=== PATIENT | male | born 1960 | race Caucasian/White ===

== ENCOUNTER 2022-07-15 12:06 | Inpatient (IN) | payer OTHER ==
[~2022-07-15] VITALS: Ht 162.6 cm; Wt 113.9 kg
[2022-07-15 12:09] VITALS: BP_SYST 129
[2022-07-15 14:16] LABS: BASOPHILS % (AUTO) 0.3 % (0.0-2.0); EOSINOPHILS # (AUTO) 0.3 K/uL (0.0-0.4); EOSINOPHILS % (AUTO) 3.2 % (0.0-4.0); HEMATOCRIT 35.6 % (36-54); HEMOGLOBIN 12.2 g/dL (14.0-18.0); LYMPHOCYTES % (AUTO) 24.5 % (20.5-51.5); MEAN CORPUSCULAR HEMOGLOBIN 30 pg (27-31); MEAN CORPUSCULAR HGB CONC 34 % (32-36); MEAN CORPUSCULAR VOLUME 87 fL (79.0-98.0); MONOCYTES # (AUTO) 0.6 K/uL (0.0-1.0); MONOCYTES % (AUTO) 7.7 % (1.7-9.3); NEUTROPHILS # (AUTO) 5.2 K/uL (1.8-7.7); NEUTROPHILS % (AUTO) 64.3 % (40.0-70.0); PLATELET COUNT (AUTO) 327 K/uL (130-430); RED CELL DISTRIBUTION WIDTH 14.8 % (9.0-15.0); WHITE BLOOD COUNT (AUTO) 8.1 K/uL (4.8-10.8)
[2022-07-15 14:20] LABS: ANION GAP 6 (5-15); CALCIUM 9.2 mg/dL (8.4-11.0); CHLORIDE 93 mmol/L (98-107); GLUCOSE 101 mg/dL (70-99); UREA NITROGEN, BLOOD 20 mg/dL (8-21)
[2022-07-15 14:24] LABS: ACETONE, SERUM NEGATIVE (NEGATIVE)
[2022-07-15 14:25] LABS: ALANINE AMINOTRANSFERASE 4 U/L (12-78); ALBUMIN 3.2 g/dL (3.4-4.8); ASPARTATE AMINOTRANSFERASE 11 U/L (10-37); C-REACTIVE PROTEIN QUANT 0.2 mg/dL (0-0.5); TOTAL BILIRUBIN 0.3 mg/dL (0.0-1.0)
[2022-07-15] MEDS ORDERED: PIPERACILLIN/TAZO 3.375 GM in NS 50 ML IV ONE (16:15)
[2022-07-15] MEDS ORDERED: VANCOMYCIN HCL 1,500 MG in NS 250 ML IV SCH ×2 (16:15→17:00)
[2022-07-15] MEDS ORDERED: PIPERACILLIN/TAZOBACTAM 3.375 GM/VIAL (ZOSYN) IV ONE ×2 (16:55→17:14)
[2022-07-15] MEDS ORDERED: D5/0.45 NS 500 ML IV ONE (17:00)
[2022-07-15] MEDS ORDERED: ONDANSETRON HCL 4 MG/2 ML VIAL IVP PRN (17:00)
[2022-07-15] MEDS ORDERED: VANCOMYCIN HCL 500 MG/VIAL IV ONE (18:22)
[2022-07-15] MEDS ORDERED: VANCOMYCIN HCL 1000 MG/VIAL IV ONE (18:22)
[2022-07-15] MEDS: MORPHINE 2 MG/ML INJ. SYRINGE IVP PRN (19:09)
[2022-07-16] MEDS: LOPERAMIDE HCL 2 MG CAPSULE PO PRN (00:53)
[2022-07-16] MEDS ORDERED: PIPERACILLIN/TAZOBACTAM 3.375 GM/VIAL (ZOSYN) IV ONE (01:11)
[2022-07-16] MEDS: MORPHINE 2 MG/ML INJ. SYRINGE IVP PRN (01:27)
[2022-07-16] MEDS: PIPERACILLIN/TAZO 3.375 GM in NS 50 ML IV SCH ×3 (01:28→17:20)
[2022-07-16] MEDS ORDERED: ONDA4TAB55 PO (07:12)
[2022-07-16] MEDS ORDERED: LIP40 PO (07:12)
[2022-07-16] MEDS ORDERED: ASPI-1393 PO (07:12)
[2022-07-16] MEDS ORDERED: METO25TA6 PO (07:12)
[2022-07-16] MEDS ORDERED: OLAN20TA3 PO (07:12)
[2022-07-16] MEDS ORDERED: ACET325T PO (07:12)
[2022-07-16] MEDS ORDERED: LOSA25TA3 PO (07:12)
[2022-07-16] MEDS ORDERED: LOPE2CAP PO (07:12)
[2022-07-16] MEDS ORDERED: AMLO2.5T2 PO (07:12)
[2022-07-16] MEDS ORDERED: OLAN2.5T29 PO (07:12)
[2022-07-16] MEDS ORDERED: CLOT15CR5 TP (07:12)
[2022-07-16] MEDS ORDERED: METF-518 PO (07:12)
[2022-07-16] MEDS ORDERED: FURO-149 PO (07:12)
[2022-07-16] MEDS ORDERED: LOVI40 SQ (07:12)
[2022-07-16] MEDS ORDERED: DIVA-74 PO (07:12)
[2022-07-16] MEDS ORDERED: IBUP-1970 PO (07:12)
[2022-07-16] MEDS ORDERED: INSU100V (07:16)
[2022-07-16] MEDS ORDERED: INSU100V53 SUBCUT (07:16)
[2022-07-16 09:08] LABS: BASOPHILS % (AUTO) 0.4 % (0.0-2.0); CALCIUM 8.9 mg/dL (8.4-11.0); CREATININE 0.64 mg/dL (0.55-1.30); EOSINOPHILS # (AUTO) 0.2 K/uL (0.0-0.4); HEMATOCRIT 33.1 % (36-54); HEMOGLOBIN 11.6 g/dL (14.0-18.0); LYMPHOCYTES # (AUTO) 1.6 K/uL (1.0-5.5); LYMPHOCYTES % (AUTO) 16.7 % (20.5-51.5); MEAN CORPUSCULAR HEMOGLOBIN 31 pg (27-31); MEAN CORPUSCULAR HGB CONC 35 % (32-36); MEAN CORPUSCULAR VOLUME 87 fL (79.0-98.0); MONOCYTES # (AUTO) 0.8 K/uL (0.0-1.0); MONOCYTES % (AUTO) 8.1 % (1.7-9.3); NEUTROPHILS # (AUTO) 6.9 K/uL (1.8-7.7); NEUTROPHILS % (AUTO) 72.8 % (40.0-70.0); PLATELET COUNT (AUTO) 320 K/uL (130-430); RED BLOOD CELL COUNT(AUTO) 3.81 MIL/uL (4.2-6.2); RED CELL DISTRIBUTION WIDTH 14.9 % (9.0-15.0); WHITE BLOOD COUNT (AUTO) 9.5 K/uL (4.8-10.8)
[2022-07-16] MEDS ORDERED: HALOPERIDOL LACTATE 5 MG/ML VIAL IVP ONE (10:45)
[2022-07-16] MEDS ORDERED: LORazepam 2 MG/ML VIAL IVP ONE (10:45)
[2022-07-16] MEDS ORDERED: HALOPERIDOL LACTATE 5 MG/ML VIAL ONE (12:02)
[2022-07-16] MEDS ORDERED: LORazepam 2 MG/ML VIAL ONE (12:03)
[2022-07-16] MEDS: VANCOMYCIN HCL 1,500 MG in NS 250 ML IV SCH (17:20)
[2022-07-17] MEDS ORDERED: PIPERACILLIN/TAZOBACTAM 3.375 GM/VIAL (ZOSYN) IV ONE (01:52)
[2022-07-17] MEDS: PIPERACILLIN/TAZO 3.375 GM in NS 50 ML IV SCH ×3 (01:52→16:10)
[2022-07-17] MEDS: VANCOMYCIN HCL 1,500 MG in NS 250 ML IV SCH ×2 (06:00→19:08)
[2022-07-17] MEDS ORDERED: MORPHINE 2 MG/ML INJ. SYRINGE ONE (10:02)
[2022-07-17] MEDS: MORPHINE 2 MG/ML INJ. SYRINGE IVP PRN ×2 (10:04→22:38)
[2022-07-18] MEDS ORDERED: PIPERACILLIN/TAZOBACTAM 3.375 GM/VIAL (ZOSYN) IV ONE (00:28)
[2022-07-18] MEDS ORDERED: VANCOMYCIN HCL 1000 MG/VIAL IV ONE (00:28)
[2022-07-18] MEDS ORDERED: VANCOMYCIN HCL 500 MG/VIAL IV ONE (00:29)
[2022-07-18] MEDS: PIPERACILLIN/TAZO 3.375 GM in NS 50 ML IV SCH ×3 (02:31→16:48)
[2022-07-18 02:37] VITALS: BP_SYST 137
[2022-07-18] MEDS: VANCOMYCIN HCL 1,500 MG in NS 250 ML IV SCH ×2 (06:46→18:09)
[2022-07-18] MEDS: INSULIN LISPRO SLIDING SCALE 100 UNITS/ML, 3 ML VIAL (humaLOG) SUBCUT PRN ×3 (06:54→18:03)
[2022-07-18 08:00] VITALS: BP_SYST 145
[2022-07-18] MEDS: MORPHINE 2 MG/ML INJ. SYRINGE IVP PRN ×2 (10:43→16:49)
[2022-07-18 20:00] VITALS: BP_SYST 149
[2022-07-18] MEDS: OLANZapine 10 MG TABLET PO SCH (22:23)
[2022-07-18] MEDS: TEMAZEPAM 15 MG CAPSULE PO PRN (22:23)
[2022-07-19] MEDS: PIPERACILLIN/TAZO 3.375 GM in NS 50 ML IV SCH (00:14)
[2022-07-19] MEDS: INSULIN LISPRO SLIDING SCALE 100 UNITS/ML, 3 ML VIAL (humaLOG) SUBCUT PRN ×4 (00:23→18:00)
[2022-07-19] MEDS: MORPHINE 2 MG/ML INJ. SYRINGE IVP PRN ×3 (03:24→21:38)
[2022-07-19] MEDS: VANCOMYCIN HCL 1,500 MG in NS 250 ML IV SCH ×2 (05:52→17:54)
[2022-07-19 07:16] LABS: BASOPHILS # (AUTO) 0.1 K/uL (0.0-0.2); BASOPHILS % (AUTO) 1.1 % (0.0-2.0); EOSINOPHILS # (AUTO) 0.2 K/uL (0.0-0.4); EOSINOPHILS % (AUTO) 4.2 % (0.0-4.0); HEMATOCRIT 29.7 % (36-54); HEMOGLOBIN 10.4 g/dL (14.0-18.0); LYMPHOCYTES # (AUTO) 1.6 K/uL (1.0-5.5); LYMPHOCYTES % (AUTO) 27.7 % (20.5-51.5); MEAN CORPUSCULAR HEMOGLOBIN 31 pg (27-31); MEAN CORPUSCULAR HGB CONC 35 % (32-36); MEAN CORPUSCULAR VOLUME 88 fL (79.0-98.0); MONOCYTES # (AUTO) 0.7 K/uL (0.0-1.0); MONOCYTES % (AUTO) 11.9 % (1.7-9.3); NEUTROPHILS # (AUTO) 3.1 K/uL (1.8-7.7); NEUTROPHILS % (AUTO) 55.1 % (40.0-70.0); PLATELET COUNT (AUTO) 310 K/uL (130-430); RED BLOOD CELL COUNT(AUTO) 3.37 MIL/uL (4.2-6.2); RED CELL DISTRIBUTION WIDTH 15.1 % (9.0-15.0); WHITE BLOOD COUNT (AUTO) 5.7 K/uL (4.8-10.8)
[2022-07-19 07:34] LABS: ALBUMIN 2.9 g/dL (3.4-4.8); C-REACTIVE PROTEIN QUANT 2.5 mg/dL (0-0.5); CALCIUM 8.8 mg/dL (8.4-11.0); CREATININE 0.77 mg/dL (0.55-1.30); TOTAL BILIRUBIN 0.3 mg/dL (0.0-1.0)
[2022-07-19 08:00] VITALS: BP_SYST 125
[2022-07-19] MEDS: CEFEPIME 2 GM in D5W 100 ML IV SCH ×2 (08:47→21:37)
[2022-07-19 12:25] LABS: ERYTHROCYTE SEDIMENTATION RATE 23 MM/HR (0-15)
[2022-07-19] MEDS ORDERED: LOPERAMIDE HCL 2 MG CAPSULE PO PRN (13:30)
[2022-07-19 16:00] VITALS: BP_SYST 142
[2022-07-19 20:53] VITALS: BP_SYST 147
[2022-07-19] MEDS ORDERED: OLANZapine 10 MG TABLET PO SCH (21:00)
[2022-07-19] MEDS: OLANZapine 10 MG TABLET PO SCH (21:35)
[2022-07-19] MEDS: DIVALPROEX SODIUM 500 MG TABLET( DEPAKOTE) PO SCH (21:35)
[2022-07-19] MEDS: METOPROLOL TARTRATE 25 MG TABLET PO SCH (21:36)
[2022-07-19] MEDS: TEMAZEPAM 15 MG CAPSULE PO PRN (21:53)
[2022-07-20 00:43] VITALS: BP_SYST 112
[2022-07-20] MEDS: INSULIN LISPRO SLIDING SCALE 100 UNITS/ML, 3 ML VIAL (humaLOG) SUBCUT PRN ×4 (01:16→16:14)
[2022-07-20] MEDS: VANCOMYCIN HCL 1,500 MG in NS 250 ML IV SCH ×2 (05:30→15:57)
[2022-07-20] MEDS: ACETAMINOPHEN 325 MG TABLET PO PRN (05:37)
[2022-07-20 06:38] LABS: CALCIUM 8.7 mg/dL (8.4-11.0); CREATININE 0.98 mg/dL (0.55-1.30)
[2022-07-20 07:47] LABS: BASOPHILS # (AUTO) 0.1 K/uL (0.0-0.2); BASOPHILS % (AUTO) 0.6 % (0.0-2.0); EOSINOPHILS # (AUTO) 0.2 K/uL (0.0-0.4); HEMATOCRIT 33.2 % (36-54); HEMOGLOBIN 11.4 g/dL (14.0-18.0); LYMPHOCYTES # (AUTO) 1.9 K/uL (1.0-5.5); LYMPHOCYTES % (AUTO) 21.3 % (20.5-51.5); MEAN CORPUSCULAR HEMOGLOBIN 30 pg (27-31); MEAN CORPUSCULAR HGB CONC 34 % (32-36); MEAN CORPUSCULAR VOLUME 89 fL (79.0-98.0); MONOCYTES # (AUTO) 0.8 K/uL (0.0-1.0); MONOCYTES % (AUTO) 8.6 % (1.7-9.3); NEUTROPHILS # (AUTO) 6.1 K/uL (1.8-7.7); NEUTROPHILS % (AUTO) 67.5 % (40.0-70.0); PLATELET COUNT (AUTO) 358 K/uL (130-430); RED BLOOD CELL COUNT(AUTO) 3.73 MIL/uL (4.2-6.2); RED CELL DISTRIBUTION WIDTH 14.9 % (9.0-15.0)
[2022-07-20 08:19] VITALS: BP_SYST 109
[2022-07-20] MEDS: DIVALPROEX SODIUM 500 MG TABLET( DEPAKOTE) PO SCH ×2 (08:54→21:52)
[2022-07-20] MEDS: ATORVASTATIN 20 MG TABLET PO SCH (08:54)
[2022-07-20] MEDS: METOPROLOL TARTRATE 25 MG TABLET PO SCH ×2 (08:54→21:52)
[2022-07-20] MEDS: FUROSEMIDE 40 MG TABLET PO SCH (08:55)
[2022-07-20] MEDS: amLODIPine BESYLATE 5 MG TABLET PO SCH (08:55)
[2022-07-20] MEDS: ASPIRIN 81 MG TABLET(ECOTRIN) PO SCH (08:55)
[2022-07-20] MEDS: LOSARTAN POTASSIUM 25 MG TABLET PO SCH (08:56)
[2022-07-20] MEDS: ENOXAPARIN SODIUM 40 MG/0.4 ML SYRINGE SQ SCH (08:56)
[2022-07-20] MEDS: CEFEPIME 2 GM in D5W 100 ML IV SCH ×2 (09:03→21:51)
[2022-07-20 12:40] VITALS: BP_SYST 128
[2022-07-20 17:19] VITALS: BP_SYST 111
[2022-07-20 21:13] VITALS: BP_SYST 145
[2022-07-20] MEDS: OLANZapine 10 MG TABLET PO SCH (21:51)
[2022-07-20] MEDS: TEMAZEPAM 15 MG CAPSULE PO PRN (21:53)
[2022-07-21 02:08] VITALS: BP_SYST 132
[2022-07-21] MEDS: INSULIN LISPRO SLIDING SCALE 100 UNITS/ML, 3 ML VIAL (humaLOG) SUBCUT PRN ×3 (02:18→18:03)
[2022-07-21] MEDS: MORPHINE 2 MG/ML INJ. SYRINGE IVP PRN ×2 (02:58→10:44)
[2022-07-21] MEDS: VANCOMYCIN HCL 1,500 MG in NS 250 ML IV SCH ×2 (07:03→18:06)
[2022-07-21 08:00] VITALS: BP_SYST 141
[2022-07-21] MEDS: CEFEPIME 2 GM in D5W 100 ML IV SCH ×2 (10:00→22:39)
[2022-07-21] MEDS: LOSARTAN POTASSIUM 25 MG TABLET PO SCH (10:01)
[2022-07-21] MEDS: DIVALPROEX SODIUM 500 MG TABLET( DEPAKOTE) PO SCH ×2 (10:01→22:36)
[2022-07-21] MEDS: METOPROLOL TARTRATE 25 MG TABLET PO SCH ×2 (10:02→22:37)
[2022-07-21] MEDS: ASPIRIN 81 MG TABLET(ECOTRIN) PO SCH (10:03)
[2022-07-21] MEDS: FUROSEMIDE 40 MG TABLET PO SCH (10:04)
[2022-07-21] MEDS: ENOXAPARIN SODIUM 40 MG/0.4 ML SYRINGE SQ SCH (10:05)
[2022-07-21] MEDS: LOPERAMIDE HCL 2 MG CAPSULE PO PRN (10:06)
[2022-07-21] MEDS: ATORVASTATIN 20 MG TABLET PO SCH (10:07)
[2022-07-21] MEDS: ACETAMINOPHEN 325 MG TABLET PO PRN (10:07)
[2022-07-21] MEDS: amLODIPine BESYLATE 5 MG TABLET PO SCH (10:08)
[2022-07-21 13:47] VITALS: BP_SYST 102
[2022-07-21] MEDS: BALSAM PERU/CASTOR OIL 56.7 GM OINT...G. TP SCH (17:00)
[2022-07-21 17:39] VITALS: BP_SYST 116
[2022-07-21 22:14] VITALS: BP_SYST 126
[2022-07-21] MEDS: OLANZapine 10 MG TABLET PO SCH (22:34)
[2022-07-21] MEDS: TEMAZEPAM 15 MG CAPSULE PO PRN (22:35)
[2022-07-22] MEDS: MORPHINE 2 MG/ML INJ. SYRINGE IVP PRN ×2 (00:34→14:35)
[2022-07-22] MEDS: INSULIN LISPRO SLIDING SCALE 100 UNITS/ML, 3 ML VIAL (humaLOG) SUBCUT PRN ×3 (00:47→13:42)
[2022-07-22 00:58] VITALS: BP_SYST 154
[2022-07-22] MEDS: VANCOMYCIN HCL 1,500 MG in NS 250 ML IV SCH (05:56)
[2022-07-22 06:44] LABS: BASOPHILS # (AUTO) 0.1 K/uL (0.0-0.2); BASOPHILS % (AUTO) 0.6 % (0.0-2.0); EOSINOPHILS # (AUTO) 0.3 K/uL (0.0-0.4); HEMATOCRIT 33.6 % (36-54); HEMOGLOBIN 11.5 g/dL (14.0-18.0); LYMPHOCYTES # (AUTO) 1.7 K/uL (1.0-5.5); LYMPHOCYTES % (AUTO) 19.5 % (20.5-51.5); MEAN CORPUSCULAR HEMOGLOBIN 30 pg (27-31); MEAN CORPUSCULAR HGB CONC 34 % (32-36); MEAN CORPUSCULAR VOLUME 89 fL (79.0-98.0); MONOCYTES # (AUTO) 0.7 K/uL (0.0-1.0); MONOCYTES % (AUTO) 8.1 % (1.7-9.3); NEUTROPHILS # (AUTO) 5.9 K/uL (1.8-7.7); NEUTROPHILS % (AUTO) 68.8 % (40.0-70.0); PLATELET COUNT (AUTO) 301 K/uL (130-430); RED BLOOD CELL COUNT(AUTO) 3.78 MIL/uL (4.2-6.2); WHITE BLOOD COUNT (AUTO) 8.5 K/uL (4.8-10.8)
[2022-07-22 07:23] LABS: CALCIUM 9.1 mg/dL (8.4-11.0); CREATININE 1.33 mg/dL (0.55-1.30)
[2022-07-22 08:00] VITALS: BP_SYST 168
[2022-07-22] MEDS: LOSARTAN POTASSIUM 25 MG TABLET PO SCH (09:00)
[2022-07-22] MEDS: ASPIRIN 81 MG TABLET(ECOTRIN) PO SCH (09:00)
[2022-07-22] MEDS: METOPROLOL TARTRATE 25 MG TABLET PO SCH ×2 (09:00→21:36)
[2022-07-22] MEDS: amLODIPine BESYLATE 5 MG TABLET PO SCH (09:00)
[2022-07-22] MEDS: ENOXAPARIN SODIUM 40 MG/0.4 ML SYRINGE SQ SCH (09:00)
[2022-07-22] MEDS: ATORVASTATIN 20 MG TABLET PO SCH (09:00)
[2022-07-22] MEDS: BALSAM PERU/CASTOR OIL 56.7 GM OINT...G. TP SCH (09:00)
[2022-07-22] MEDS: FUROSEMIDE 40 MG TABLET PO SCH (09:00)
[2022-07-22] MEDS: DIVALPROEX SODIUM 500 MG TABLET( DEPAKOTE) PO SCH ×2 (09:00→21:35)
[2022-07-22] MEDS: CEFEPIME 2 GM in D5W 100 ML IV SCH ×2 (10:36→21:37)
[2022-07-22 12:00] VITALS: BP_SYST 102
[2022-07-22 16:00] VITALS: BP_SYST 108
[2022-07-22] MEDS: ACETAMINOPHEN 325 MG TABLET PO PRN (18:12)
[2022-07-22 20:38] VITALS: BP_SYST 103
[2022-07-22] MEDS: TEMAZEPAM 15 MG CAPSULE PO PRN (21:35)
[2022-07-22] MEDS: OLANZapine 10 MG TABLET PO SCH (21:36)
[2022-07-23] MEDS: INSULIN LISPRO SLIDING SCALE 100 UNITS/ML, 3 ML VIAL (humaLOG) SUBCUT PRN (01:25)
[2022-07-23] MEDS: BALSAM PERU/CASTOR OIL 56.7 GM OINT...G. TP SCH (09:00)
[2022-07-23 09:24] VITALS: BP_SYST 130
[2022-07-23] MEDS: METOPROLOL TARTRATE 25 MG TABLET PO SCH ×2 (09:30→22:30)
[2022-07-23] MEDS: ATORVASTATIN 20 MG TABLET PO SCH (09:31)
[2022-07-23] MEDS: FUROSEMIDE 40 MG TABLET PO SCH (09:36)
[2022-07-23] MEDS: amLODIPine BESYLATE 5 MG TABLET PO SCH (09:36)
[2022-07-23] MEDS: ENOXAPARIN SODIUM 40 MG/0.4 ML SYRINGE SQ SCH (09:36)
[2022-07-23] MEDS: LOSARTAN POTASSIUM 25 MG TABLET PO SCH (09:37)
[2022-07-23] MEDS: ASPIRIN 81 MG TABLET(ECOTRIN) PO SCH (09:37)
[2022-07-23] MEDS: DIVALPROEX SODIUM 500 MG TABLET( DEPAKOTE) PO SCH ×2 (09:37→22:28)
[2022-07-23] MEDS: CEFEPIME 2 GM in D5W 100 ML IV SCH ×2 (10:30→10:32)
[2022-07-23] MEDS: IBUPROFEN 800 MG TABLET PO PRN (10:40)
[2022-07-23 12:00] VITALS: BP_SYST 148
[2022-07-23 16:01] VITALS: BP_SYST 158
[2022-07-23 21:14] VITALS: BP_SYST 145
[2022-07-23] MEDS: OLANZapine 10 MG TABLET PO SCH (22:28)
[2022-07-23] MEDS: TEMAZEPAM 15 MG CAPSULE PO PRN (22:32)
[2022-07-24] MEDS: INSULIN LISPRO SLIDING SCALE 100 UNITS/ML, 3 ML VIAL (humaLOG) SUBCUT PRN ×3 (00:58→12:15)
[2022-07-24] MEDS: ACETAMINOPHEN 325 MG TABLET PO PRN (04:01)
[2022-07-24 04:17] VITALS: BP_SYST 133
[2022-07-24 08:00] VITALS: BP_SYST 107
[2022-07-24] MEDS: BALSAM PERU/CASTOR OIL 56.7 GM OINT...G. TP SCH (09:00)
[2022-07-24] MEDS: CEFEPIME 2 GM in D5W 100 ML IV SCH (09:34)
[2022-07-24] MEDS: ENOXAPARIN SODIUM 40 MG/0.4 ML SYRINGE SQ SCH (09:35)
[2022-07-24] MEDS: ATORVASTATIN 20 MG TABLET PO SCH (09:36)
[2022-07-24] MEDS: LOSARTAN POTASSIUM 25 MG TABLET PO SCH (09:36)
[2022-07-24] MEDS: METOPROLOL TARTRATE 25 MG TABLET PO SCH ×2 (09:37→22:08)
[2022-07-24] MEDS: ASPIRIN 81 MG TABLET(ECOTRIN) PO SCH (09:37)
[2022-07-24] MEDS: amLODIPine BESYLATE 5 MG TABLET PO SCH (09:38)
[2022-07-24] MEDS: FUROSEMIDE 40 MG TABLET PO SCH (09:39)
[2022-07-24] MEDS: DIVALPROEX SODIUM 500 MG TABLET( DEPAKOTE) PO SCH ×2 (09:39→22:07)
[2022-07-24 12:00] VITALS: BP_SYST 139
[2022-07-24] MEDS ORDERED: VANCOMYCIN HCL 750 MG in NS 250 ML IV SCH (12:00)
[2022-07-24] MEDS: IBUPROFEN 800 MG TABLET PO PRN (12:06)
[2022-07-24] MEDS: LORazepam 1 MG TABLET PO PRN ×2 (12:06→22:08)
[2022-07-24 14:21] LABS: CALCIUM 9.3 mg/dL (8.4-11.0); CREATININE 1.61 mg/dL (0.55-1.30)
[2022-07-24 16:00] VITALS: BP_SYST 138
[2022-07-24 20:00] VITALS: BP_SYST 124
[2022-07-24] MEDS: OLANZapine 10 MG TABLET PO SCH (22:07)
[2022-07-25] VITALS (16 sets, daily range): BP systolic 103–185
[2022-07-25] MEDS: LORazepam 1 MG TABLET PO PRN (04:47)
[2022-07-25] MEDS: FUROSEMIDE 40 MG TABLET PO SCH (09:00)
[2022-07-25] MEDS: DIVALPROEX SODIUM 500 MG TABLET( DEPAKOTE) PO SCH ×2 (09:00→20:12)
[2022-07-25] MEDS: ATORVASTATIN 20 MG TABLET PO SCH (09:00)
[2022-07-25] MEDS: ASPIRIN 81 MG TABLET(ECOTRIN) PO SCH (09:00)
[2022-07-25] MEDS: ENOXAPARIN SODIUM 40 MG/0.4 ML SYRINGE SQ SCH (09:00)
[2022-07-25] MEDS: BALSAM PERU/CASTOR OIL 56.7 GM OINT...G. TP SCH (09:00)
[2022-07-25] MEDS: amLODIPine BESYLATE 5 MG TABLET PO SCH (11:30)
[2022-07-25] MEDS: LOSARTAN POTASSIUM 25 MG TABLET PO SCH (11:30)
[2022-07-25] MEDS: D5/0.45 NS 1,000 ML IV SCH (11:37)
[2022-07-25] MEDS ORDERED: NOREPINEPHRINE BITARTRATE 4 MG in NS 246 ML IV PRN (11:45)
[2022-07-25] MEDS: METOPROLOL TARTRATE 25 MG TABLET PO SCH ×2 (12:00→20:13)
[2022-07-25] MEDS: PIPERACILLIN/TAZO 2.25G/DEX-IS 50 ML IV SCH ×3 (12:14→23:13)
[2022-07-25] MEDS: INSULIN LISPRO SLIDING SCALE 100 UNITS/ML, 3 ML VIAL (humaLOG) SUBCUT PRN ×2 (12:44→17:08)
[2022-07-25] MEDS: PROPOFOL DRIP 100 ML IV PRN ×2 (14:06→19:10)
[2022-07-25] MEDS: OLANZapine 10 MG TABLET PO SCH (20:13)
[2022-07-26] VITALS (26 sets, daily range): BP systolic 116–142
[2022-07-26] MEDS: D5/0.45 NS 1,000 ML IV SCH (04:27)
[2022-07-26] MEDS: PIPERACILLIN/TAZO 2.25G/DEX-IS 50 ML IV SCH ×4 (05:03→23:14)
[2022-07-26 06:59] LABS: BASOPHILS % (AUTO) 0.4 % (0.0-2.0); EOSINOPHILS % (AUTO) 0.4 % (0.0-4.0); HEMATOCRIT 31.4 % (36-54); HEMOGLOBIN 10.6 g/dL (14.0-18.0); LYMPHOCYTES # (AUTO) 1.9 K/uL (1.0-5.5); LYMPHOCYTES % (AUTO) 22.1 % (20.5-51.5); MEAN CORPUSCULAR HEMOGLOBIN 30 pg (27-31); MEAN CORPUSCULAR HGB CONC 34 % (32-36); MEAN CORPUSCULAR VOLUME 90 fL (79.0-98.0); MONOCYTES # (AUTO) 0.9 K/uL (0.0-1.0); MONOCYTES % (AUTO) 10.1 % (1.7-9.3); NEUTROPHILS # (AUTO) 5.7 K/uL (1.8-7.7); PLATELET COUNT (AUTO) 213 K/uL (130-430); RED CELL DISTRIBUTION WIDTH 15.3 % (9.0-15.0); WHITE BLOOD COUNT (AUTO) 8.5 K/uL (4.8-10.8)
[2022-07-26 07:23] LABS: CALCIUM 8.5 mg/dL (8.4-11.0); CREATININE 2.09 mg/dL (0.55-1.30)
[2022-07-26] MEDS: ASPIRIN 81 MG TABLET(ECOTRIN) PO SCH (08:30)
[2022-07-26] MEDS: ENOXAPARIN SODIUM 40 MG/0.4 ML SYRINGE SQ SCH (08:30)
[2022-07-26] MEDS: ATORVASTATIN 20 MG TABLET PO SCH (08:31)
[2022-07-26] MEDS: METOPROLOL TARTRATE 25 MG TABLET PO SCH ×2 (08:31→22:12)
[2022-07-26] MEDS: LOSARTAN POTASSIUM 25 MG TABLET PO SCH (08:32)
[2022-07-26] MEDS: amLODIPine BESYLATE 5 MG TABLET PO SCH (08:35)
[2022-07-26] MEDS: DIVALPROEX SODIUM 500 MG TABLET( DEPAKOTE) PO SCH ×2 (08:35→22:11)
[2022-07-26] MEDS: FUROSEMIDE 40 MG TABLET PO SCH (08:36)
[2022-07-26] MEDS: BALSAM PERU/CASTOR OIL 56.7 GM OINT...G. TP SCH (09:46)
[2022-07-26] MEDS: INSULIN LISPRO SLIDING SCALE 100 UNITS/ML, 3 ML VIAL (humaLOG) SUBCUT PRN ×2 (12:19→17:33)
[2022-07-26] MEDS: OLANZapine 10 MG TABLET PO SCH (22:12)
[2022-07-27] VITALS (27 sets, daily range): BP systolic 121–152
[2022-07-27] MEDS: D5/0.45 NS 1,000 ML IV SCH ×2 (02:19→22:21)
[2022-07-27] MEDS: PIPERACILLIN/TAZO 2.25G/DEX-IS 50 ML IV SCH ×4 (05:06→23:19)
[2022-07-27] MEDS: INSULIN LISPRO SLIDING SCALE 100 UNITS/ML, 3 ML VIAL (humaLOG) SUBCUT PRN ×3 (05:10→23:47)
[2022-07-27 07:32] LABS: BASOPHILS % (AUTO) 0.5 % (0.0-2.0); EOSINOPHILS % (AUTO) 0.3 % (0.0-4.0); HEMATOCRIT 31.9 % (36-54); HEMOGLOBIN 10.7 g/dL (14.0-18.0); LYMPHOCYTES # (AUTO) 1.4 K/uL (1.0-5.5); MEAN CORPUSCULAR HEMOGLOBIN 30 pg (27-31); MEAN CORPUSCULAR HGB CONC 34 % (32-36); MEAN CORPUSCULAR VOLUME 90 fL (79.0-98.0); NEUTROPHILS # (AUTO) 6.4 K/uL (1.8-7.7); NEUTROPHILS % (AUTO) 72.2 % (40.0-70.0); PLATELET COUNT (AUTO) 234 K/uL (130-430); RED BLOOD CELL COUNT(AUTO) 3.54 MIL/uL (4.2-6.2); RED CELL DISTRIBUTION WIDTH 15.8 % (9.0-15.0); WHITE BLOOD COUNT (AUTO) 8.9 K/uL (4.8-10.8)
[2022-07-27 08:16] LABS: CALCIUM 9.1 mg/dL (8.4-11.0); CREATININE 2.01 mg/dL (0.55-1.30)
[2022-07-27] MEDS: LOSARTAN POTASSIUM 25 MG TABLET PO SCH (08:37)
[2022-07-27] MEDS: DIVALPROEX SODIUM 500 MG TABLET( DEPAKOTE) PO SCH ×2 (08:37→22:20)
[2022-07-27] MEDS: ASPIRIN 81 MG TABLET(ECOTRIN) PO SCH (08:37)
[2022-07-27] MEDS: FUROSEMIDE 40 MG TABLET PO SCH (08:38)
[2022-07-27] MEDS: ATORVASTATIN 20 MG TABLET PO SCH (08:38)
[2022-07-27] MEDS: METOPROLOL TARTRATE 25 MG TABLET PO SCH ×2 (08:39→22:20)
[2022-07-27] MEDS: amLODIPine BESYLATE 5 MG TABLET PO SCH (08:39)
[2022-07-27] MEDS: LORazepam 1 MG TABLET PO PRN (08:40)
[2022-07-27] MEDS: BALSAM PERU/CASTOR OIL 56.7 GM OINT...G. TP SCH (08:40)
[2022-07-27] MEDS: ENOXAPARIN SODIUM 40 MG/0.4 ML SYRINGE SQ SCH (08:40)
[2022-07-27] MEDS: OLANZapine 10 MG TABLET PO SCH (22:20)
[2022-07-28] VITALS (26 sets, daily range): BP systolic 109–160
[2022-07-28] MEDS: PIPERACILLIN/TAZO 2.25G/DEX-IS 50 ML IV SCH ×4 (05:24→23:56)
[2022-07-28] MEDS: INSULIN LISPRO SLIDING SCALE 100 UNITS/ML, 3 ML VIAL (humaLOG) SUBCUT PRN ×4 (05:46→23:58)
[2022-07-28 06:56] LABS: BASOPHILS % (AUTO) 0.4 % (0.0-2.0); CALCIUM 8.6 mg/dL (8.4-11.0); CREATININE 1.93 mg/dL (0.55-1.30); EOSINOPHILS # (AUTO) 0.1 K/uL (0.0-0.4); EOSINOPHILS % (AUTO) 0.7 % (0.0-4.0); HEMATOCRIT 32.4 % (36-54); HEMOGLOBIN 10.9 g/dL (14.0-18.0); LYMPHOCYTES # (AUTO) 1.6 K/uL (1.0-5.5); LYMPHOCYTES % (AUTO) 19.6 % (20.5-51.5); MEAN CORPUSCULAR HEMOGLOBIN 30 pg (27-31); MEAN CORPUSCULAR HGB CONC 34 % (32-36); MEAN CORPUSCULAR VOLUME 91 fL (79.0-98.0); MONOCYTES # (AUTO) 0.9 K/uL (0.0-1.0); MONOCYTES % (AUTO) 11.3 % (1.7-9.3); NEUTROPHILS # (AUTO) 5.6 K/uL (1.8-7.7); PLATELET COUNT (AUTO) 232 K/uL (130-430); RED BLOOD CELL COUNT(AUTO) 3.58 MIL/uL (4.2-6.2); RED CELL DISTRIBUTION WIDTH 15.9 % (9.0-15.0); WHITE BLOOD COUNT (AUTO) 8.2 K/uL (4.8-10.8)
[2022-07-28] MEDS: FUROSEMIDE 40 MG TABLET PO SCH (08:35)
[2022-07-28] MEDS: LOSARTAN POTASSIUM 25 MG TABLET PO SCH (08:35)
[2022-07-28] MEDS: ATORVASTATIN 20 MG TABLET PO SCH (08:36)
[2022-07-28] MEDS: METOPROLOL TARTRATE 25 MG TABLET PO SCH ×2 (08:36→20:42)
[2022-07-28] MEDS: ASPIRIN 81 MG TABLET(ECOTRIN) PO SCH (08:36)
[2022-07-28] MEDS: amLODIPine BESYLATE 5 MG TABLET PO SCH (08:37)
[2022-07-28] MEDS: DIVALPROEX SODIUM 500 MG TABLET( DEPAKOTE) PO SCH ×2 (08:37→20:40)
[2022-07-28] MEDS: ENOXAPARIN SODIUM 40 MG/0.4 ML SYRINGE SQ SCH (08:39)
[2022-07-28] MEDS: BALSAM PERU/CASTOR OIL 56.7 GM OINT...G. TP SCH (09:36)
[2022-07-28] MEDS: PROPOFOL DRIP 100 ML IV PRN (13:25)
[2022-07-28] MEDS: D5/0.45 NS 1,000 ML IV SCH (19:43)
[2022-07-28] MEDS: OLANZapine 10 MG TABLET PO SCH (20:42)
[2022-07-29] VITALS (34 sets, daily range): BP systolic 120–181
[2022-07-29] MEDS: PROPOFOL DRIP 100 ML IV PRN ×2 (00:10→21:48)
[2022-07-29] MEDS: PIPERACILLIN/TAZO 2.25G/DEX-IS 50 ML IV SCH ×4 (05:48→23:30)
[2022-07-29 06:26] LABS: BASOPHILS % (AUTO) 0.5 % (0.0-2.0); EOSINOPHILS # (AUTO) 0.5 K/uL (0.0-0.4); EOSINOPHILS % (AUTO) 5.1 % (0.0-4.0); HEMOGLOBIN 11.5 g/dL (14.0-18.0); LYMPHOCYTES # (AUTO) 1.6 K/uL (1.0-5.5); LYMPHOCYTES % (AUTO) 16.9 % (20.5-51.5); MEAN CORPUSCULAR HEMOGLOBIN 31 pg (27-31); MEAN CORPUSCULAR HGB CONC 34 % (32-36); MEAN CORPUSCULAR VOLUME 91 fL (79.0-98.0); MONOCYTES # (AUTO) 0.8 K/uL (0.0-1.0); MONOCYTES % (AUTO) 8.9 % (1.7-9.3); NEUTROPHILS # (AUTO) 6.3 K/uL (1.8-7.7); NEUTROPHILS % (AUTO) 68.6 % (40.0-70.0); PLATELET COUNT (AUTO) 246 K/uL (130-430); RED BLOOD CELL COUNT(AUTO) 3.74 MIL/uL (4.2-6.2); WHITE BLOOD COUNT (AUTO) 9.3 K/uL (4.8-10.8)
[2022-07-29 06:28] LABS: CALCIUM 8.5 mg/dL (8.4-11.0); CREATININE 1.9 mg/dL (0.55-1.30)
[2022-07-29] MEDS: DIVALPROEX SODIUM 500 MG TABLET( DEPAKOTE) PO SCH ×2 (08:24→21:42)
[2022-07-29] MEDS: LOSARTAN POTASSIUM 25 MG TABLET PO SCH (08:24)
[2022-07-29] MEDS: ASPIRIN 81 MG TABLET(ECOTRIN) PO SCH (08:24)
[2022-07-29] MEDS: ATORVASTATIN 20 MG TABLET PO SCH (08:24)
[2022-07-29] MEDS: FUROSEMIDE 40 MG TABLET PO SCH (08:24)
[2022-07-29] MEDS: METOPROLOL TARTRATE 25 MG TABLET PO SCH ×2 (08:25→21:44)
[2022-07-29] MEDS: BALSAM PERU/CASTOR OIL 56.7 GM OINT...G. TP SCH (08:25)
[2022-07-29] MEDS: ENOXAPARIN SODIUM 40 MG/0.4 ML SYRINGE SQ SCH (08:25)
[2022-07-29] MEDS: amLODIPine BESYLATE 5 MG TABLET PO SCH (08:25)
[2022-07-29] MEDS: INSULIN LISPRO SLIDING SCALE 100 UNITS/ML, 3 ML VIAL (humaLOG) SUBCUT PRN ×3 (11:50→23:41)
[2022-07-29] MEDS: D5/0.45 NS 1,000 ML IV SCH (18:45)
[2022-07-29] MEDS: OLANZapine 10 MG TABLET PO SCH (21:44)
[2022-07-30] VITALS (33 sets, daily range): BP systolic 125–164
[2022-07-30] MEDS: PIPERACILLIN/TAZO 2.25G/DEX-IS 50 ML IV SCH ×3 (05:59→17:47)
[2022-07-30] MEDS: INSULIN LISPRO SLIDING SCALE 100 UNITS/ML, 3 ML VIAL (humaLOG) SUBCUT PRN ×2 (06:05→18:03)
[2022-07-30 07:19] LABS: BASOPHILS % (AUTO) 0.6 % (0.0-2.0); EOSINOPHILS # (AUTO) 0.7 K/uL (0.0-0.4); EOSINOPHILS % (AUTO) 8.3 % (0.0-4.0); HEMATOCRIT 33.5 % (36-54); HEMOGLOBIN 11.2 g/dL (14.0-18.0); LYMPHOCYTES % (AUTO) 24.6 % (20.5-51.5); MEAN CORPUSCULAR HEMOGLOBIN 30 pg (27-31); MEAN CORPUSCULAR HGB CONC 33 % (32-36); MEAN CORPUSCULAR VOLUME 91 fL (79.0-98.0); MONOCYTES # (AUTO) 0.7 K/uL (0.0-1.0); MONOCYTES % (AUTO) 9.1 % (1.7-9.3); NEUTROPHILS # (AUTO) 4.7 K/uL (1.8-7.7); NEUTROPHILS % (AUTO) 57.4 % (40.0-70.0); PLATELET COUNT (AUTO) 234 K/uL (130-430); RED BLOOD CELL COUNT(AUTO) 3.68 MIL/uL (4.2-6.2); RED CELL DISTRIBUTION WIDTH 15.7 % (9.0-15.0); WHITE BLOOD COUNT (AUTO) 8.2 K/uL (4.8-10.8)
[2022-07-30 07:36] LABS: ALBUMIN 2.3 g/dL (3.4-4.8); CALCIUM 8.3 mg/dL (8.4-11.0); CREATININE 1.75 mg/dL (0.55-1.30); TOTAL BILIRUBIN 0.5 mg/dL (0.0-1.0)
[2022-07-30] MEDS: DIVALPROEX SODIUM 500 MG TABLET( DEPAKOTE) PO SCH ×2 (08:49→21:07)
[2022-07-30] MEDS: METOPROLOL TARTRATE 25 MG TABLET PO SCH ×2 (08:49→21:08)
[2022-07-30] MEDS: FUROSEMIDE 40 MG TABLET PO SCH (09:00)
[2022-07-30] MEDS: BALSAM PERU/CASTOR OIL 56.7 GM OINT...G. TP SCH (09:00)
[2022-07-30] MEDS: amLODIPine BESYLATE 5 MG TABLET PO SCH (09:01)
[2022-07-30] MEDS: ASPIRIN 81 MG TABLET(ECOTRIN) PO SCH (09:01)
[2022-07-30] MEDS: ATORVASTATIN 20 MG TABLET PO SCH (09:04)
[2022-07-30] MEDS: ENOXAPARIN SODIUM 40 MG/0.4 ML SYRINGE SQ SCH (09:05)
[2022-07-30] MEDS: LOSARTAN POTASSIUM 25 MG TABLET PO SCH (09:09)
[2022-07-30] MEDS: PROPOFOL DRIP 100 ML IV PRN (10:35)
[2022-07-30] MEDS: OLANZapine 10 MG TABLET PO SCH (21:08)
[2022-07-31] VITALS (32 sets, daily range): BP systolic 107–164
[2022-07-31] MEDS: PIPERACILLIN/TAZO 2.25G/DEX-IS 50 ML IV SCH ×4 (00:03→18:19)
[2022-07-31] MEDS: INSULIN LISPRO SLIDING SCALE 100 UNITS/ML, 3 ML VIAL (humaLOG) SUBCUT PRN ×4 (00:04→18:41)
[2022-07-31] MEDS: D5/0.45 NS 1,000 ML IV SCH ×3 (01:42→13:41)
[2022-07-31 08:15] LABS: BASOPHILS % (AUTO) 0.5 % (0.0-2.0); EOSINOPHILS # (AUTO) 0.6 K/uL (0.0-0.4); EOSINOPHILS % (AUTO) 7.4 % (0.0-4.0); HEMATOCRIT 35.2 % (36-54); HEMOGLOBIN 11.6 g/dL (14.0-18.0); LYMPHOCYTES # (AUTO) 1.6 K/uL (1.0-5.5); LYMPHOCYTES % (AUTO) 18.8 % (20.5-51.5); MEAN CORPUSCULAR HEMOGLOBIN 31 pg (27-31); MEAN CORPUSCULAR HGB CONC 33 % (32-36); MEAN CORPUSCULAR VOLUME 92 fL (79.0-98.0); MONOCYTES # (AUTO) 0.6 K/uL (0.0-1.0); MONOCYTES % (AUTO) 6.7 % (1.7-9.3); NEUTROPHILS # (AUTO) 5.8 K/uL (1.8-7.7); NEUTROPHILS % (AUTO) 66.6 % (40.0-70.0); PLATELET COUNT (AUTO) 227 K/uL (130-430); RED BLOOD CELL COUNT(AUTO) 3.81 MIL/uL (4.2-6.2); RED CELL DISTRIBUTION WIDTH 15.5 % (9.0-15.0); WHITE BLOOD COUNT (AUTO) 8.7 K/uL (4.8-10.8)
[2022-07-31 08:45] LABS: ALBUMIN 2.4 g/dL (3.4-4.8); CALCIUM 8.2 mg/dL (8.4-11.0); CREATININE 1.84 mg/dL (0.55-1.30); TOTAL BILIRUBIN 0.4 mg/dL (0.0-1.0)
[2022-07-31] MEDS: BALSAM PERU/CASTOR OIL 56.7 GM OINT...G. TP SCH (09:00)
[2022-07-31] MEDS: ATORVASTATIN 20 MG TABLET PO SCH (10:26)
[2022-07-31] MEDS: ENOXAPARIN SODIUM 40 MG/0.4 ML SYRINGE SQ SCH (10:26)
[2022-07-31] MEDS: amLODIPine BESYLATE 5 MG TABLET PO SCH (10:27)
[2022-07-31] MEDS: FUROSEMIDE 40 MG TABLET PO SCH (10:27)
[2022-07-31] MEDS: ASPIRIN 81 MG TABLET(ECOTRIN) PO SCH (10:27)
[2022-07-31] MEDS: DIVALPROEX SODIUM 500 MG TABLET( DEPAKOTE) PO SCH ×2 (10:28→20:36)
[2022-07-31] MEDS: LOSARTAN POTASSIUM 25 MG TABLET PO SCH (10:28)
[2022-07-31] MEDS: METOPROLOL TARTRATE 25 MG TABLET PO SCH ×2 (10:29→20:35)
[2022-07-31] MEDS: OLANZapine 10 MG TABLET PO SCH (20:33)
[2022-07-31] MEDS: ACETAMINOPHEN 325 MG TABLET PO PRN ×2 (20:35→23:57)
[2022-08-01] VITALS (27 sets, daily range): BP systolic 108–159
[2022-08-01] MEDS: INSULIN LISPRO SLIDING SCALE 100 UNITS/ML, 3 ML VIAL (humaLOG) SUBCUT PRN ×4 (06:34→23:22)
[2022-08-01 07:07] LABS: BASOPHILS % (AUTO) 0.6 % (0.0-2.0); EOSINOPHILS # (AUTO) 0.5 K/uL (0.0-0.4); EOSINOPHILS % (AUTO) 6.4 % (0.0-4.0); HEMATOCRIT 33.7 % (36-54); HEMOGLOBIN 11.2 g/dL (14.0-18.0); LYMPHOCYTES # (AUTO) 1.6 K/uL (1.0-5.5); LYMPHOCYTES % (AUTO) 21.9 % (20.5-51.5); MEAN CORPUSCULAR HEMOGLOBIN 30 pg (27-31); MEAN CORPUSCULAR HGB CONC 33 % (32-36); MEAN CORPUSCULAR VOLUME 92 fL (79.0-98.0); MONOCYTES # (AUTO) 0.6 K/uL (0.0-1.0); MONOCYTES % (AUTO) 8.3 % (1.7-9.3); NEUTROPHILS # (AUTO) 4.5 K/uL (1.8-7.7); NEUTROPHILS % (AUTO) 62.8 % (40.0-70.0); PLATELET COUNT (AUTO) 241 K/uL (130-430); RED BLOOD CELL COUNT(AUTO) 3.67 MIL/uL (4.2-6.2); RED CELL DISTRIBUTION WIDTH 15.5 % (9.0-15.0); WHITE BLOOD COUNT (AUTO) 7.2 K/uL (4.8-10.8)
[2022-08-01 07:49] LABS: CALCIUM 8.3 mg/dL (8.4-11.0); CREATININE 1.66 mg/dL (0.55-1.30)
[2022-08-01] MEDS: ACETAMINOPHEN 325 MG TABLET PO PRN (08:38)
[2022-08-01] MEDS: LOSARTAN POTASSIUM 25 MG TABLET PO SCH (08:38)
[2022-08-01] MEDS: ASPIRIN 81 MG TABLET(ECOTRIN) PO SCH (08:38)
[2022-08-01] MEDS: FUROSEMIDE 40 MG TABLET PO SCH (08:38)
[2022-08-01] MEDS: DIVALPROEX SODIUM 500 MG TABLET( DEPAKOTE) PO SCH ×2 (08:38→21:03)
[2022-08-01] MEDS: ATORVASTATIN 20 MG TABLET PO SCH (08:38)
[2022-08-01] MEDS: BALSAM PERU/CASTOR OIL 56.7 GM OINT...G. TP SCH (08:39)
[2022-08-01] MEDS: ENOXAPARIN SODIUM 40 MG/0.4 ML SYRINGE SQ SCH (08:39)
[2022-08-01] MEDS: amLODIPine BESYLATE 5 MG TABLET PO SCH (08:39)
[2022-08-01] MEDS: METOPROLOL TARTRATE 25 MG TABLET PO SCH ×2 (08:39→21:03)
[2022-08-01] MEDS: levETIRAcetam 1,000 MG in NS 100 ML IV SCH ×2 (09:23→21:01)
[2022-08-01] MEDS: NACL 0.9% 1,000 ML IV SCH (12:00)
[2022-08-01] MEDS: INSULIN NPH 100 UNITS/ML 10 ML VIAL SUBCUT SCH (17:25)
[2022-08-01] MEDS ORDERED: levETIRAcetam 1,000 MG in NS 100 ML IV SCH (21:00)
[2022-08-01] MEDS: OLANZapine 10 MG TABLET PO SCH (21:03)
[2022-08-02] VITALS (28 sets, daily range): BP systolic 112–149
[2022-08-02 06:13] LABS: BASOPHILS # (AUTO) 0.1 K/uL (0.0-0.2); BASOPHILS % (AUTO) 1.7 % (0.0-2.0); EOSINOPHILS # (AUTO) 0.5 K/uL (0.0-0.4); EOSINOPHILS % (AUTO) 6.5 % (0.0-4.0); HEMATOCRIT 33.8 % (36-54); HEMOGLOBIN 11.4 g/dL (14.0-18.0); LYMPHOCYTES # (AUTO) 1.8 K/uL (1.0-5.5); LYMPHOCYTES % (AUTO) 23.2 % (20.5-51.5); MEAN CORPUSCULAR HEMOGLOBIN 31 pg (27-31); MEAN CORPUSCULAR HGB CONC 34 % (32-36); MEAN CORPUSCULAR VOLUME 92 fL (79.0-98.0); MONOCYTES # (AUTO) 0.5 K/uL (0.0-1.0); MONOCYTES % (AUTO) 6.3 % (1.7-9.3); NEUTROPHILS # (AUTO) 4.9 K/uL (1.8-7.7); NEUTROPHILS % (AUTO) 62.3 % (40.0-70.0); PLATELET COUNT (AUTO) 270 K/uL (130-430); RED BLOOD CELL COUNT(AUTO) 3.69 MIL/uL (4.2-6.2); RED CELL DISTRIBUTION WIDTH 15.2 % (9.0-15.0); WHITE BLOOD COUNT (AUTO) 7.9 K/uL (4.8-10.8)
[2022-08-02 07:23] LABS: CALCIUM 8.4 mg/dL (8.4-11.0); CREATININE 1.52 mg/dL (0.55-1.30)
[2022-08-02] MEDS: INSULIN NPH 100 UNITS/ML 10 ML VIAL SUBCUT SCH ×2 (07:56→17:44)
[2022-08-02] MEDS: LOSARTAN POTASSIUM 25 MG TABLET PO SCH (08:36)
[2022-08-02] MEDS: ATORVASTATIN 20 MG TABLET PO SCH (08:36)
[2022-08-02] MEDS: ASPIRIN 81 MG TABLET(ECOTRIN) PO SCH (08:36)
[2022-08-02] MEDS: ENOXAPARIN SODIUM 40 MG/0.4 ML SYRINGE SQ SCH (08:37)
[2022-08-02] MEDS: FUROSEMIDE 40 MG TABLET PO SCH (08:37)
[2022-08-02] MEDS: METOPROLOL TARTRATE 25 MG TABLET PO SCH ×2 (08:37→20:53)
[2022-08-02] MEDS: levETIRAcetam 1,000 MG in NS 100 ML IV SCH ×2 (08:41→20:55)
[2022-08-02] MEDS: amLODIPine BESYLATE 5 MG TABLET PO SCH (08:41)
[2022-08-02] MEDS: DIVALPROEX SODIUM 500 MG TABLET( DEPAKOTE) PO SCH ×2 (08:42→20:53)
[2022-08-02] MEDS: BALSAM PERU/CASTOR OIL 56.7 GM OINT...G. TP SCH (08:42)
[2022-08-02] MEDS: NACL 0.9% 1,000 ML IV SCH (08:44)
[2022-08-02] MEDS: OLANZapine 10 MG TABLET PO SCH (20:52)
[2022-08-02] MEDS: ACETAMINOPHEN 325 MG TABLET PO PRN (20:54)
[2022-08-02] MEDS: INSULIN LISPRO SLIDING SCALE 100 UNITS/ML, 3 ML VIAL (humaLOG) SUBCUT PRN (23:21)
[2022-08-03] VITALS (26 sets, daily range): BP systolic 67–167
[2022-08-03] MEDS: NACL 0.9% 1,000 ML IV SCH (04:56)
[2022-08-03] MEDS: INSULIN LISPRO SLIDING SCALE 100 UNITS/ML, 3 ML VIAL (humaLOG) SUBCUT PRN ×2 (05:50→13:13)
[2022-08-03 06:40] LABS: BASOPHILS # (AUTO) 0.1 K/uL (0.0-0.2); BASOPHILS % (AUTO) 0.8 % (0.0-2.0); EOSINOPHILS # (AUTO) 0.3 K/uL (0.0-0.4); HEMATOCRIT 36.1 % (36-54); HEMOGLOBIN 11.9 g/dL (14.0-18.0); LYMPHOCYTES # (AUTO) 2.3 K/uL (1.0-5.5); LYMPHOCYTES % (AUTO) 27.9 % (20.5-51.5); MEAN CORPUSCULAR HEMOGLOBIN 31 pg (27-31); MEAN CORPUSCULAR HGB CONC 33 % (32-36); MEAN CORPUSCULAR VOLUME 92 fL (79.0-98.0); MONOCYTES # (AUTO) 0.8 K/uL (0.0-1.0); MONOCYTES % (AUTO) 10.1 % (1.7-9.3); NEUTROPHILS # (AUTO) 4.7 K/uL (1.8-7.7); NEUTROPHILS % (AUTO) 57.2 % (40.0-70.0); PLATELET COUNT (AUTO) 317 K/uL (130-430); RED BLOOD CELL COUNT(AUTO) 3.91 MIL/uL (4.2-6.2); RED CELL DISTRIBUTION WIDTH 15.6 % (9.0-15.0); WHITE BLOOD COUNT (AUTO) 8.3 K/uL (4.8-10.8)
[2022-08-03 07:07] LABS: CALCIUM 8.8 mg/dL (8.4-11.0); CREATININE 1.59 mg/dL (0.55-1.30)
[2022-08-03] MEDS: ATORVASTATIN 20 MG TABLET PO SCH (09:48)
[2022-08-03] MEDS: FUROSEMIDE 40 MG TABLET PO SCH (09:49)
[2022-08-03] MEDS: amLODIPine BESYLATE 5 MG TABLET PO SCH (09:50)
[2022-08-03] MEDS: LOSARTAN POTASSIUM 25 MG TABLET PO SCH (09:51)
[2022-08-03] MEDS: levETIRAcetam 1,000 MG in NS 100 ML IV SCH ×2 (09:52→20:10)
[2022-08-03] MEDS: ENOXAPARIN SODIUM 40 MG/0.4 ML SYRINGE SQ SCH (09:54)
[2022-08-03] MEDS: METOPROLOL TARTRATE 25 MG TABLET PO SCH ×2 (09:59→20:09)
[2022-08-03] MEDS: DIVALPROEX SODIUM 500 MG TABLET( DEPAKOTE) PO SCH ×2 (10:01→20:08)
[2022-08-03] MEDS: ASPIRIN 81 MG TABLET(ECOTRIN) PO SCH (10:01)
[2022-08-03] MEDS ORDERED: D5/0.45 NS 1,000 ML IV SCH (10:15)
[2022-08-03] MEDS: BALSAM PERU/CASTOR OIL 56.7 GM OINT...G. TP SCH (10:30)
[2022-08-03] MEDS ORDERED: 0.45% NS 500 ML IV ONE (18:30)
[2022-08-03] MEDS: OLANZapine 10 MG TABLET PO SCH (20:09)
[2022-08-04] VITALS (33 sets, daily range): BP systolic 107–153
[2022-08-04] MEDS: INSULIN LISPRO SLIDING SCALE 100 UNITS/ML, 3 ML VIAL (humaLOG) SUBCUT PRN ×4 (00:06→18:19)
[2022-08-04 03:16] LABS: BILIRUBIN,URINE NEGATIVE (NEGATIVE); BLOOD, URINE 2+ (NEGATIVE); CLARITY/URINE SL CLOUDY (CLEAR); COLOR,URINE YELLOW (YELLOW); GLUCOSE,URINE NEGATIVE (NEGATIVE); KETONES,URINE NEGATIVE (NEGATIVE); LEUKOCYTE ESTERASE ,URINE TRACE (NEGATIVE); NITRITE, URINE NEGATIVE (NEGATIVE); PROTEIN URINE NEGATIVE (NEGATIVE); UROBILINOGEN,URINE 0.2 (0.2-1.0)
[2022-08-04 04:23] LABS: BACTERIA,URINE None Seen /HPF (None Seen)
[2022-08-04 06:39] LABS: BASOPHILS # (AUTO) 0.1 K/uL (0.0-0.2); EOSINOPHILS # (AUTO) 0.3 K/uL (0.0-0.4); EOSINOPHILS % (AUTO) 4.4 % (0.0-4.0); HEMATOCRIT 34.2 % (36-54); HEMOGLOBIN 11.4 g/dL (14.0-18.0); LYMPHOCYTES # (AUTO) 2.1 K/uL (1.0-5.5); LYMPHOCYTES % (AUTO) 26.3 % (20.5-51.5); MEAN CORPUSCULAR HEMOGLOBIN 31 pg (27-31); MEAN CORPUSCULAR HGB CONC 33 % (32-36); MEAN CORPUSCULAR VOLUME 93 fL (79.0-98.0); MONOCYTES # (AUTO) 0.7 K/uL (0.0-1.0); MONOCYTES % (AUTO) 8.8 % (1.7-9.3); NEUTROPHILS # (AUTO) 4.7 K/uL (1.8-7.7); NEUTROPHILS % (AUTO) 59.5 % (40.0-70.0); PLATELET COUNT (AUTO) 347 K/uL (130-430); RED BLOOD CELL COUNT(AUTO) 3.69 MIL/uL (4.2-6.2); RED CELL DISTRIBUTION WIDTH 15.2 % (9.0-15.0); WHITE BLOOD COUNT (AUTO) 7.9 K/uL (4.8-10.8)
[2022-08-04 06:48] LABS: ALBUMIN 2.4 g/dL (3.4-4.8); CALCIUM 8.5 mg/dL (8.4-11.0); CREATININE 1.51 mg/dL (0.55-1.30); TOTAL BILIRUBIN 0.4 mg/dL (0.0-1.0)
[2022-08-04] MEDS: ENOXAPARIN SODIUM 40 MG/0.4 ML SYRINGE SQ SCH (08:51)
[2022-08-04] MEDS: DIVALPROEX SODIUM 500 MG TABLET( DEPAKOTE) PO SCH ×2 (08:52→20:17)
[2022-08-04] MEDS: amLODIPine BESYLATE 5 MG TABLET PO SCH (08:52)
[2022-08-04] MEDS: ASPIRIN 81 MG TABLET(ECOTRIN) PO SCH (08:53)
[2022-08-04] MEDS: METOPROLOL TARTRATE 25 MG TABLET PO SCH ×2 (08:53→20:18)
[2022-08-04] MEDS: ATORVASTATIN 20 MG TABLET PO SCH (08:54)
[2022-08-04] MEDS: LOSARTAN POTASSIUM 25 MG TABLET PO SCH (08:54)
[2022-08-04] MEDS: levETIRAcetam 1,000 MG in NS 100 ML IV SCH ×2 (08:58→20:19)
[2022-08-04] MEDS: BALSAM PERU/CASTOR OIL 56.7 GM OINT...G. TP SCH (12:23)
[2022-08-04] MEDS: INSULIN NPH 100 UNITS/ML 10 ML VIAL SUBCUT SCH ×2 (12:29→18:20)
[2022-08-04] MEDS ORDERED: LACTULOSE 20 GM/30 ML UDC PO ONE (12:45)
[2022-08-04] MEDS: 0.45% NACL 1,000 ML IV SCH ×2 (16:00→22:49)
[2022-08-04] MEDS: OLANZapine 10 MG TABLET PO SCH (20:18)
[2022-08-05] VITALS (31 sets, daily range): BP systolic 104–159
[2022-08-05] MEDS: INSULIN LISPRO SLIDING SCALE 100 UNITS/ML, 3 ML VIAL (humaLOG) SUBCUT PRN ×2 (00:17→07:00)
[2022-08-05] MEDS: INSULIN NPH 100 UNITS/ML 10 ML VIAL SUBCUT SCH ×2 (06:59→17:35)
[2022-08-05 07:31] LABS: BASOPHILS # (AUTO) 0.1 K/uL (0.0-0.2); BASOPHILS % (AUTO) 0.7 % (0.0-2.0); EOSINOPHILS # (AUTO) 0.3 K/uL (0.0-0.4); EOSINOPHILS % (AUTO) 4.5 % (0.0-4.0); HEMATOCRIT 34.4 % (36-54); HEMOGLOBIN 11.2 g/dL (14.0-18.0); LYMPHOCYTES # (AUTO) 1.9 K/uL (1.0-5.5); LYMPHOCYTES % (AUTO) 25.6 % (20.5-51.5); MEAN CORPUSCULAR HEMOGLOBIN 30 pg (27-31); MEAN CORPUSCULAR HGB CONC 33 % (32-36); MEAN CORPUSCULAR VOLUME 93 fL (79.0-98.0); MONOCYTES # (AUTO) 0.6 K/uL (0.0-1.0); MONOCYTES % (AUTO) 8.6 % (1.7-9.3); NEUTROPHILS # (AUTO) 4.5 K/uL (1.8-7.7); NEUTROPHILS % (AUTO) 60.6 % (40.0-70.0); PLATELET COUNT (AUTO) 365 K/uL (130-430); RED BLOOD CELL COUNT(AUTO) 3.69 MIL/uL (4.2-6.2); RED CELL DISTRIBUTION WIDTH 15.1 % (9.0-15.0); WHITE BLOOD COUNT (AUTO) 7.5 K/uL (4.8-10.8)
[2022-08-05 08:22] LABS: CALCIUM 8.8 mg/dL (8.4-11.0); CREATININE 1.61 mg/dL (0.55-1.30)
[2022-08-05] MEDS: levETIRAcetam 1,000 MG in NS 100 ML IV SCH ×2 (08:54→20:34)
[2022-08-05] MEDS: 0.45% NACL 1,000 ML IV SCH ×2 (08:55→19:22)
[2022-08-05] MEDS: DIVALPROEX SODIUM 500 MG TABLET( DEPAKOTE) PO SCH ×2 (08:58→20:33)
[2022-08-05] MEDS: ASPIRIN 81 MG TABLET(ECOTRIN) PO SCH (08:58)
[2022-08-05] MEDS: LOSARTAN POTASSIUM 25 MG TABLET PO SCH (08:58)
[2022-08-05] MEDS: LACTULOSE 20 GM/30 ML UDC PO SCH (08:59)
[2022-08-05] MEDS: ATORVASTATIN 20 MG TABLET PO SCH (08:59)
[2022-08-05] MEDS: amLODIPine BESYLATE 5 MG TABLET PO SCH (09:00)
[2022-08-05] MEDS: ENOXAPARIN SODIUM 40 MG/0.4 ML SYRINGE SQ SCH (09:00)
[2022-08-05] MEDS: METOPROLOL TARTRATE 25 MG TABLET PO SCH ×2 (09:04→20:33)
[2022-08-05] MEDS: BALSAM PERU/CASTOR OIL 56.7 GM OINT...G. TP SCH (09:14)
[2022-08-05] MEDS: OLANZapine 10 MG TABLET PO SCH (20:33)
[2022-08-06] VITALS (26 sets, daily range): BP systolic 119–161
[2022-08-06] MEDS: 0.45% NACL 1,000 ML IV SCH ×3 (00:16→18:06)
[2022-08-06] MEDS: INSULIN LISPRO SLIDING SCALE 100 UNITS/ML, 3 ML VIAL (humaLOG) SUBCUT PRN ×2 (06:10→18:10)
[2022-08-06] MEDS: INSULIN NPH 100 UNITS/ML 10 ML VIAL SUBCUT SCH ×2 (06:11→16:51)
[2022-08-06 07:37] LABS: BASOPHILS # (AUTO) 0.1 K/uL (0.0-0.2); BASOPHILS % (AUTO) 0.9 % (0.0-2.0); EOSINOPHILS # (AUTO) 0.5 K/uL (0.0-0.4); EOSINOPHILS % (AUTO) 6.1 % (0.0-4.0); HEMATOCRIT 34.1 % (36-54); HEMOGLOBIN 11.3 g/dL (14.0-18.0); LYMPHOCYTES # (AUTO) 1.8 K/uL (1.0-5.5); LYMPHOCYTES % (AUTO) 23.5 % (20.5-51.5); MEAN CORPUSCULAR HEMOGLOBIN 31 pg (27-31); MEAN CORPUSCULAR HGB CONC 33 % (32-36); MEAN CORPUSCULAR VOLUME 93 fL (79.0-98.0); MONOCYTES # (AUTO) 0.6 K/uL (0.0-1.0); MONOCYTES % (AUTO) 8.5 % (1.7-9.3); NEUTROPHILS # (AUTO) 4.5 K/uL (1.8-7.7); PLATELET COUNT (AUTO) 393 K/uL (130-430); RED BLOOD CELL COUNT(AUTO) 3.67 MIL/uL (4.2-6.2); RED CELL DISTRIBUTION WIDTH 14.9 % (9.0-15.0); WHITE BLOOD COUNT (AUTO) 7.4 K/uL (4.8-10.8)
[2022-08-06 07:39] LABS: CALCIUM 8.7 mg/dL (8.4-11.0); CREATININE 1.45 mg/dL (0.55-1.30)
[2022-08-06] MEDS: ATORVASTATIN 20 MG TABLET PO SCH (08:34)
[2022-08-06] MEDS: DIVALPROEX SODIUM 500 MG TABLET( DEPAKOTE) PO SCH ×2 (08:34→21:38)
[2022-08-06] MEDS: ASPIRIN 81 MG TABLET(ECOTRIN) PO SCH (08:34)
[2022-08-06] MEDS: levETIRAcetam 1,000 MG in NS 100 ML IV SCH ×2 (08:35→21:39)
[2022-08-06] MEDS: LACTULOSE 20 GM/30 ML UDC PO SCH (08:37)
[2022-08-06] MEDS: amLODIPine BESYLATE 5 MG TABLET PO SCH (08:37)
[2022-08-06] MEDS: METOPROLOL TARTRATE 25 MG TABLET PO SCH ×2 (08:37→21:39)
[2022-08-06] MEDS: LOSARTAN POTASSIUM 25 MG TABLET PO SCH (08:38)
[2022-08-06] MEDS: ENOXAPARIN SODIUM 40 MG/0.4 ML SYRINGE SQ SCH (08:43)
[2022-08-06] MEDS: BALSAM PERU/CASTOR OIL 56.7 GM OINT...G. TP SCH (08:48)
[2022-08-06] MEDS ORDERED: POTASSIUM CHLORIDE 20 MEQ/PKT PACKET PO ONE (13:15)
[2022-08-06] MEDS: OLANZapine 10 MG TABLET PO SCH (21:38)
[2022-08-07] VITALS (32 sets, daily range): BP systolic 97–181
[2022-08-07] MEDS: INSULIN LISPRO SLIDING SCALE 100 UNITS/ML, 3 ML VIAL (humaLOG) SUBCUT PRN ×3 (01:36→23:51)
[2022-08-07] MEDS: D5W 1,000 ML IV SCH ×3 (02:15→19:05)
[2022-08-07 06:31] LABS: BASOPHILS # (AUTO) 0.1 K/uL (0.0-0.2); BASOPHILS % (AUTO) 0.7 % (0.0-2.0); EOSINOPHILS # (AUTO) 0.4 K/uL (0.0-0.4); EOSINOPHILS % (AUTO) 4.6 % (0.0-4.0); HEMATOCRIT 34.6 % (36-54); HEMOGLOBIN 11.1 g/dL (14.0-18.0); LYMPHOCYTES # (AUTO) 1.9 K/uL (1.0-5.5); LYMPHOCYTES % (AUTO) 22.2 % (20.5-51.5); MEAN CORPUSCULAR HEMOGLOBIN 30 pg (27-31); MEAN CORPUSCULAR HGB CONC 32 % (32-36); MEAN CORPUSCULAR VOLUME 95 fL (79.0-98.0); MONOCYTES # (AUTO) 0.7 K/uL (0.0-1.0); MONOCYTES % (AUTO) 8.1 % (1.7-9.3); NEUTROPHILS # (AUTO) 5.5 K/uL (1.8-7.7); NEUTROPHILS % (AUTO) 64.4 % (40.0-70.0); PLATELET COUNT (AUTO) 392 K/uL (130-430); RED BLOOD CELL COUNT(AUTO) 3.65 MIL/uL (4.2-6.2); RED CELL DISTRIBUTION WIDTH 14.8 % (9.0-15.0); WHITE BLOOD COUNT (AUTO) 8.5 K/uL (4.8-10.8)
[2022-08-07] MEDS: INSULIN NPH 100 UNITS/ML 10 ML VIAL SUBCUT SCH ×2 (06:56→17:19)
[2022-08-07 07:04] LABS: CALCIUM 8.3 mg/dL (8.4-11.0); CREATININE 1.61 mg/dL (0.55-1.30)
[2022-08-07] MEDS: levETIRAcetam 1,000 MG in NS 100 ML IV SCH ×2 (08:43→20:57)
[2022-08-07] MEDS: LOSARTAN POTASSIUM 25 MG TABLET PO SCH (08:44)
[2022-08-07] MEDS: ASPIRIN 81 MG TABLET(ECOTRIN) PO SCH (08:45)
[2022-08-07] MEDS: DIVALPROEX SODIUM 500 MG TABLET( DEPAKOTE) PO SCH ×2 (08:45→20:54)
[2022-08-07] MEDS: LACTULOSE 20 GM/30 ML UDC PO SCH (08:47)
[2022-08-07] MEDS: ATORVASTATIN 20 MG TABLET PO SCH (08:48)
[2022-08-07] MEDS: METOPROLOL TARTRATE 25 MG TABLET PO SCH ×2 (08:49→20:55)
[2022-08-07] MEDS: amLODIPine BESYLATE 5 MG TABLET PO SCH (08:50)
[2022-08-07] MEDS: ENOXAPARIN SODIUM 40 MG/0.4 ML SYRINGE SQ SCH (08:51)
[2022-08-07] MEDS: BALSAM PERU/CASTOR OIL 56.7 GM OINT...G. TP SCH (08:52)
[2022-08-07] MEDS: OLANZapine 10 MG TABLET PO SCH (20:54)
[2022-08-07] MEDS: ACETAMINOPHEN 325 MG TABLET PO PRN (21:18)
[2022-08-08] VITALS (36 sets, daily range): BP systolic 125–170
[2022-08-08] MEDS: D5W 1,000 ML IV SCH ×5 (02:14→23:23)
[2022-08-08 06:06] LABS: BASOPHILS # (AUTO) 0.1 K/uL (0.0-0.2); BASOPHILS % (AUTO) 0.9 % (0.0-2.0); EOSINOPHILS # (AUTO) 0.5 K/uL (0.0-0.4); EOSINOPHILS % (AUTO) 6.1 % (0.0-4.0); HEMOGLOBIN 11.3 g/dL (14.0-18.0); LYMPHOCYTES # (AUTO) 1.7 K/uL (1.0-5.5); LYMPHOCYTES % (AUTO) 20.4 % (20.5-51.5); MEAN CORPUSCULAR HEMOGLOBIN 31 pg (27-31); MEAN CORPUSCULAR HGB CONC 33 % (32-36); MEAN CORPUSCULAR VOLUME 93 fL (79.0-98.0); MONOCYTES # (AUTO) 0.7 K/uL (0.0-1.0); MONOCYTES % (AUTO) 7.9 % (1.7-9.3); NEUTROPHILS # (AUTO) 5.4 K/uL (1.8-7.7); NEUTROPHILS % (AUTO) 64.7 % (40.0-70.0); PLATELET COUNT (AUTO) 384 K/uL (130-430); RED BLOOD CELL COUNT(AUTO) 3.65 MIL/uL (4.2-6.2); RED CELL DISTRIBUTION WIDTH 14.1 % (9.0-15.0); WHITE BLOOD COUNT (AUTO) 8.4 K/uL (4.8-10.8)
[2022-08-08] MEDS: INSULIN NPH 100 UNITS/ML 10 ML VIAL SUBCUT SCH ×2 (06:14→18:06)
[2022-08-08] MEDS: INSULIN LISPRO SLIDING SCALE 100 UNITS/ML, 3 ML VIAL (humaLOG) SUBCUT PRN ×4 (06:19→23:24)
[2022-08-08 06:23] LABS: CALCIUM 8.2 mg/dL (8.4-11.0); CREATININE 1.41 mg/dL (0.55-1.30)
[2022-08-08] MEDS: LOSARTAN POTASSIUM 25 MG TABLET PO SCH (08:46)
[2022-08-08] MEDS: LACTULOSE 20 GM/30 ML UDC PO SCH (08:46)
[2022-08-08] MEDS: ATORVASTATIN 20 MG TABLET PO SCH (08:46)
[2022-08-08] MEDS: DIVALPROEX SODIUM 500 MG TABLET( DEPAKOTE) PO SCH ×2 (08:46→20:20)
[2022-08-08] MEDS: amLODIPine BESYLATE 5 MG TABLET PO SCH (08:47)
[2022-08-08] MEDS: ENOXAPARIN SODIUM 40 MG/0.4 ML SYRINGE SQ SCH (08:47)
[2022-08-08] MEDS: ASPIRIN 81 MG TABLET(ECOTRIN) PO SCH (08:47)
[2022-08-08] MEDS: levETIRAcetam 1,000 MG in NS 100 ML IV SCH ×2 (08:49→20:20)
[2022-08-08] MEDS: BALSAM PERU/CASTOR OIL 56.7 GM OINT...G. TP SCH (08:52)
[2022-08-08] MEDS: METOPROLOL TARTRATE 25 MG TABLET PO SCH ×2 (10:12→20:20)
[2022-08-08] MEDS: OLANZapine 10 MG TABLET PO SCH (20:19)
[2022-08-09] VITALS (32 sets, daily range): BP systolic 93–146
[2022-08-09] MEDS: INSULIN LISPRO SLIDING SCALE 100 UNITS/ML, 3 ML VIAL (humaLOG) SUBCUT PRN ×3 (05:46→17:47)
[2022-08-09] MEDS: D5W 1,000 ML IV SCH ×3 (06:05→21:30)
[2022-08-09 06:52] LABS: CREATININE 1.38 mg/dL (0.55-1.30)
[2022-08-09 06:59] LABS: BASOPHILS # (AUTO) 0.1 K/uL (0.0-0.2); BASOPHILS % (AUTO) 0.7 % (0.0-2.0); EOSINOPHILS # (AUTO) 0.6 K/uL (0.0-0.4); EOSINOPHILS % (AUTO) 7.6 % (0.0-4.0); HEMATOCRIT 32.2 % (36-54); HEMOGLOBIN 10.7 g/dL (14.0-18.0); LYMPHOCYTES # (AUTO) 1.3 K/uL (1.0-5.5); LYMPHOCYTES % (AUTO) 15.6 % (20.5-51.5); MEAN CORPUSCULAR HEMOGLOBIN 31 pg (27-31); MEAN CORPUSCULAR HGB CONC 33 % (32-36); MEAN CORPUSCULAR VOLUME 93 fL (79.0-98.0); MONOCYTES # (AUTO) 0.7 K/uL (0.0-1.0); NEUTROPHILS # (AUTO) 5.6 K/uL (1.8-7.7); NEUTROPHILS % (AUTO) 68.1 % (40.0-70.0); PLATELET COUNT (AUTO) 347 K/uL (130-430); RED BLOOD CELL COUNT(AUTO) 3.46 MIL/uL (4.2-6.2); RED CELL DISTRIBUTION WIDTH 14.3 % (9.0-15.0); WHITE BLOOD COUNT (AUTO) 8.2 K/uL (4.8-10.8)
[2022-08-09] MEDS: INSULIN NPH 100 UNITS/ML 10 ML VIAL SUBCUT SCH ×2 (08:11→21:28)
[2022-08-09 08:58] LABS: URINE SODIUM, RANDOM 24 mmol/L (40-220)
[2022-08-09] MEDS: METOPROLOL TARTRATE 25 MG TABLET PO SCH ×2 (09:00→20:57)
[2022-08-09] MEDS: amLODIPine BESYLATE 5 MG TABLET PO SCH (09:00)
[2022-08-09] MEDS: LOSARTAN POTASSIUM 25 MG TABLET PO SCH (09:00)
[2022-08-09] MEDS: ATORVASTATIN 20 MG TABLET PO SCH (09:32)
[2022-08-09] MEDS: DIVALPROEX SODIUM 500 MG TABLET( DEPAKOTE) PO SCH ×2 (09:32→20:56)
[2022-08-09] MEDS: LACTULOSE 20 GM/30 ML UDC PO SCH (09:32)
[2022-08-09] MEDS: ASPIRIN 81 MG TABLET(ECOTRIN) PO SCH (09:33)
[2022-08-09] MEDS: levETIRAcetam 1,000 MG in NS 100 ML IV SCH ×2 (09:34→20:56)
[2022-08-09] MEDS: ENOXAPARIN SODIUM 40 MG/0.4 ML SYRINGE SQ SCH (09:34)
[2022-08-09] MEDS: BALSAM PERU/CASTOR OIL 56.7 GM OINT...G. TP SCH (11:57)
[2022-08-09] MEDS ORDERED: INSULIN NPH 100 UNITS/ML 10 ML VIAL SUBCUT SCH (17:00)
[2022-08-09] MEDS: OLANZapine 10 MG TABLET PO SCH (20:58)
[2022-08-10] VITALS (32 sets, daily range): BP systolic 95–146
[2022-08-10] MEDS: D5W 1,000 ML IV SCH ×2 (06:08→09:21)
[2022-08-10 06:40] LABS: CALCIUM 8.3 mg/dL (8.4-11.0); CREATININE 1.45 mg/dL (0.55-1.30)
[2022-08-10 06:46] LABS: BASOPHILS # (AUTO) 0.1 K/uL (0.0-0.2); BASOPHILS % (AUTO) 0.9 % (0.0-2.0); EOSINOPHILS # (AUTO) 0.6 K/uL (0.0-0.4); HEMATOCRIT 30.7 % (36-54); HEMOGLOBIN 10.4 g/dL (14.0-18.0); LYMPHOCYTES # (AUTO) 1.6 K/uL (1.0-5.5); LYMPHOCYTES % (AUTO) 19.6 % (20.5-51.5); MEAN CORPUSCULAR HEMOGLOBIN 31 pg (27-31); MEAN CORPUSCULAR HGB CONC 34 % (32-36); MEAN CORPUSCULAR VOLUME 93 fL (79.0-98.0); MONOCYTES # (AUTO) 0.7 K/uL (0.0-1.0); MONOCYTES % (AUTO) 9.1 % (1.7-9.3); NEUTROPHILS # (AUTO) 5.1 K/uL (1.8-7.7); NEUTROPHILS % (AUTO) 63.4 % (40.0-70.0); PLATELET COUNT (AUTO) 335 K/uL (130-430); RED BLOOD CELL COUNT(AUTO) 3.31 MIL/uL (4.2-6.2); RED CELL DISTRIBUTION WIDTH 14.3 % (9.0-15.0); WHITE BLOOD COUNT (AUTO) 8.1 K/uL (4.8-10.8)
[2022-08-10] MEDS: LACTULOSE 20 GM/30 ML UDC PO SCH (09:02)
[2022-08-10] MEDS: ATORVASTATIN 20 MG TABLET PO SCH (09:03)
[2022-08-10] MEDS: LOSARTAN POTASSIUM 25 MG TABLET PO SCH (09:03)
[2022-08-10] MEDS: DIVALPROEX SODIUM 500 MG TABLET( DEPAKOTE) PO SCH ×2 (09:03→22:24)
[2022-08-10] MEDS: ASPIRIN 81 MG TABLET(ECOTRIN) PO SCH (09:03)
[2022-08-10] MEDS: amLODIPine BESYLATE 5 MG TABLET PO SCH (09:03)
[2022-08-10] MEDS: ENOXAPARIN SODIUM 40 MG/0.4 ML SYRINGE SQ SCH (09:04)
[2022-08-10] MEDS: METOPROLOL TARTRATE 25 MG TABLET PO SCH ×2 (09:07→22:24)
[2022-08-10] MEDS: BALSAM PERU/CASTOR OIL 56.7 GM OINT...G. TP SCH (09:08)
[2022-08-10] MEDS: INSULIN NPH 100 UNITS/ML 10 ML VIAL SUBCUT SCH ×2 (09:10→22:26)
[2022-08-10] MEDS: levETIRAcetam 1,000 MG in NS 100 ML IV SCH ×2 (09:15→22:23)
[2022-08-10] MEDS ORDERED: ETOMIDATE 20 MG/ 10 ML VIAL (AMIDATE) IVP ONE (11:00)
[2022-08-10] MEDS ORDERED: ROCURONIUM BROMIDE 10 MG/ML (ZEMURON) IV ONE (11:00)
[2022-08-10] MEDS: INSULIN LISPRO SLIDING SCALE 100 UNITS/ML, 3 ML VIAL (humaLOG) SUBCUT PRN (18:39)
[2022-08-10] MEDS: OLANZapine 10 MG TABLET PO SCH (22:23)
[2022-08-11] VITALS (32 sets, daily range): BP systolic 107–155
[2022-08-11] MEDS: INSULIN LISPRO SLIDING SCALE 100 UNITS/ML, 3 ML VIAL (humaLOG) SUBCUT PRN ×5 (00:48→23:55)
[2022-08-11] MEDS: D5W 1,000 ML IV SCH ×4 (01:05→16:52)
[2022-08-11 06:38] LABS: BASOPHILS % (AUTO) 0.5 % (0.0-2.0); CALCIUM 8.1 mg/dL (8.4-11.0); CREATININE 1.21 mg/dL (0.55-1.30); EOSINOPHILS # (AUTO) 0.5 K/uL (0.0-0.4); EOSINOPHILS % (AUTO) 6.6 % (0.0-4.0); HEMATOCRIT 29.1 % (36-54); HEMOGLOBIN 9.8 g/dL (14.0-18.0); LYMPHOCYTES % (AUTO) 25.5 % (20.5-51.5); MEAN CORPUSCULAR HEMOGLOBIN 31 pg (27-31); MEAN CORPUSCULAR HGB CONC 34 % (32-36); MEAN CORPUSCULAR VOLUME 92 fL (79.0-98.0); MONOCYTES # (AUTO) 0.7 K/uL (0.0-1.0); NEUTROPHILS # (AUTO) 4.7 K/uL (1.8-7.7); NEUTROPHILS % (AUTO) 58.4 % (40.0-70.0); PLATELET COUNT (AUTO) 321 K/uL (130-430); RED BLOOD CELL COUNT(AUTO) 3.16 MIL/uL (4.2-6.2); RED CELL DISTRIBUTION WIDTH 14.1 % (9.0-15.0)
[2022-08-11] MEDS: INSULIN NPH 100 UNITS/ML 10 ML VIAL SUBCUT SCH ×2 (12:28→21:11)
[2022-08-11] MEDS: DIVALPROEX SODIUM 500 MG TABLET( DEPAKOTE) PO SCH ×2 (12:36→21:07)
[2022-08-11] MEDS: LACTULOSE 20 GM/30 ML UDC PO SCH (12:36)
[2022-08-11] MEDS: METOPROLOL TARTRATE 25 MG TABLET PO SCH ×2 (12:38→21:08)
[2022-08-11] MEDS: ASPIRIN 81 MG TABLET(ECOTRIN) PO SCH (12:39)
[2022-08-11] MEDS: amLODIPine BESYLATE 5 MG TABLET PO SCH (12:40)
[2022-08-11] MEDS: LOSARTAN POTASSIUM 25 MG TABLET PO SCH (12:40)
[2022-08-11] MEDS: ATORVASTATIN 20 MG TABLET PO SCH (12:41)
[2022-08-11] MEDS: ENOXAPARIN SODIUM 40 MG/0.4 ML SYRINGE SQ SCH (12:42)
[2022-08-11] MEDS: levETIRAcetam 1,000 MG in NS 100 ML IV SCH ×2 (12:45→21:07)
[2022-08-11] MEDS: BALSAM PERU/CASTOR OIL 56.7 GM OINT...G. TP SCH (12:48)
[2022-08-11] MEDS ORDERED: POTASSIUM CHLORIDE 20 MEQ TAB.PRT.SR PO ONE (14:00)
[2022-08-11] MEDS: OLANZapine 10 MG TABLET PO SCH (21:08)
[2022-08-11] MEDS: VANCOMYCIN HCL 1,000 MG in NS 250 ML IV SCH (22:54)
[2022-08-12] VITALS (33 sets, daily range): BP systolic 98–149
[2022-08-12] MEDS: D5W 1,000 ML IV SCH ×4 (01:55→17:21)
[2022-08-12] MEDS: INSULIN LISPRO SLIDING SCALE 100 UNITS/ML, 3 ML VIAL (humaLOG) SUBCUT PRN ×3 (05:36→17:18)
[2022-08-12 06:17] LABS: BASOPHILS # (AUTO) 0.1 K/uL (0.0-0.2); BASOPHILS % (AUTO) 0.9 % (0.0-2.0); EOSINOPHILS # (AUTO) 0.7 K/uL (0.0-0.4); EOSINOPHILS % (AUTO) 8.9 % (0.0-4.0); HEMATOCRIT 29.8 % (36-54); LYMPHOCYTES # (AUTO) 1.6 K/uL (1.0-5.5); LYMPHOCYTES % (AUTO) 21.3 % (20.5-51.5); MEAN CORPUSCULAR HEMOGLOBIN 31 pg (27-31); MEAN CORPUSCULAR HGB CONC 34 % (32-36); MEAN CORPUSCULAR VOLUME 92 fL (79.0-98.0); MONOCYTES # (AUTO) 0.7 K/uL (0.0-1.0); MONOCYTES % (AUTO) 9.6 % (1.7-9.3); NEUTROPHILS # (AUTO) 4.6 K/uL (1.8-7.7); NEUTROPHILS % (AUTO) 59.3 % (40.0-70.0); PLATELET COUNT (AUTO) 326 K/uL (130-430); RED BLOOD CELL COUNT(AUTO) 3.26 MIL/uL (4.2-6.2); RED CELL DISTRIBUTION WIDTH 14.3 % (9.0-15.0); WHITE BLOOD COUNT (AUTO) 7.7 K/uL (4.8-10.8)
[2022-08-12 06:50] LABS: CALCIUM 8.1 mg/dL (8.4-11.0); CREATININE 1.41 mg/dL (0.55-1.30)
[2022-08-12] MEDS: METOPROLOL TARTRATE 25 MG TABLET PO SCH ×2 (09:00→20:27)
[2022-08-12] MEDS: LOSARTAN POTASSIUM 25 MG TABLET PO SCH (09:00)
[2022-08-12] MEDS: LACTULOSE 20 GM/30 ML UDC PO SCH (09:00)
[2022-08-12] MEDS: ENOXAPARIN SODIUM 40 MG/0.4 ML SYRINGE SQ SCH (09:00)
[2022-08-12] MEDS: amLODIPine BESYLATE 5 MG TABLET PO SCH (09:00)
[2022-08-12] MEDS: ASPIRIN 81 MG TABLET(ECOTRIN) PO SCH (09:00)
[2022-08-12] MEDS: MULTIVITAMINS TAB 1 TABLET PO SCH (09:00)
[2022-08-12] MEDS: INSULIN NPH 100 UNITS/ML 10 ML VIAL SUBCUT SCH ×2 (09:00→20:38)
[2022-08-12] MEDS: levETIRAcetam 1,000 MG in NS 100 ML IV SCH ×2 (09:00→20:26)
[2022-08-12] MEDS: ATORVASTATIN 20 MG TABLET PO SCH (09:00)
[2022-08-12] MEDS: ASCORBIC ACID 500 MG TABLET PO SCH (09:00)
[2022-08-12] MEDS: DIVALPROEX SODIUM 500 MG TABLET( DEPAKOTE) PO SCH ×2 (09:00→20:27)
[2022-08-12] MEDS: BALSAM PERU/CASTOR OIL 56.7 GM OINT...G. TP SCH (09:00)
[2022-08-12] MEDS: VANCOMYCIN HCL 1,000 MG in NS 250 ML IV SCH ×2 (10:33→22:20)
[2022-08-12] MEDS: OLANZapine 10 MG TABLET PO SCH (20:27)
[2022-08-13] VITALS (30 sets, daily range): BP systolic 94–157
[2022-08-13] MEDS: D5W 1,000 ML IV SCH ×4 (00:51→21:01)
[2022-08-13] MEDS: INSULIN LISPRO SLIDING SCALE 100 UNITS/ML, 3 ML VIAL (humaLOG) SUBCUT PRN ×4 (00:53→17:22)
[2022-08-13 07:48] LABS: ALBUMIN 1.8 g/dL (3.4-4.8); CREATININE 1.24 mg/dL (0.55-1.30); PHOSPHORUS 4.3 mg/dL (2.7-4.5); TOTAL BILIRUBIN 0.3 mg/dL (0.0-1.0)
[2022-08-13 08:25] LABS: HEMATOCRIT 29.2 % (36-54); HEMOGLOBIN 9.9 g/dL (14.0-18.0); MEAN CORPUSCULAR HEMOGLOBIN 31 pg (27-31); MEAN CORPUSCULAR HGB CONC 34 % (32-36); MEAN CORPUSCULAR VOLUME 92 fL (79.0-98.0); NEUTROPHILS % (AUTO) 58.6 % (40.0-70.0); PLATELET COUNT (AUTO) 312 K/uL (130-430); RED BLOOD CELL COUNT(AUTO) 3.18 MIL/uL (4.2-6.2); RED CELL DISTRIBUTION WIDTH 14.2 % (9.0-15.0)
[2022-08-13 08:26] LABS: BASOPHILS # (AUTO) 0.1 K/uL (0.0-0.2); BASOPHILS % (AUTO) 0.9 % (0.0-2.0); EOSINOPHILS # (AUTO) 0.7 K/uL (0.0-0.4); EOSINOPHILS % (AUTO) 8.8 % (0.0-4.0); LYMPHOCYTES # (AUTO) 1.8 K/uL (1.0-5.5); LYMPHOCYTES % (AUTO) 22.4 % (20.5-51.5); MONOCYTES # (AUTO) 0.7 K/uL (0.0-1.0); MONOCYTES % (AUTO) 9.3 % (1.7-9.3); NEUTROPHILS # (AUTO) 4.7 K/uL (1.8-7.7)
[2022-08-13] MEDS: amLODIPine BESYLATE 5 MG TABLET PO SCH (09:00)
[2022-08-13] MEDS: METOPROLOL TARTRATE 25 MG TABLET PO SCH ×2 (09:00→21:00)
[2022-08-13] MEDS: LOSARTAN POTASSIUM 25 MG TABLET PO SCH (09:00)
[2022-08-13] MEDS: VANCOMYCIN HCL 1,000 MG in NS 250 ML IV SCH ×2 (09:49→22:52)
[2022-08-13] MEDS: levETIRAcetam 1,000 MG in NS 100 ML IV SCH ×2 (09:49→21:01)
[2022-08-13] MEDS: INSULIN NPH 100 UNITS/ML 10 ML VIAL SUBCUT SCH ×2 (09:53→20:59)
[2022-08-13] MEDS: BALSAM PERU/CASTOR OIL 56.7 GM OINT...G. TP SCH (09:54)
[2022-08-13] MEDS: ASCORBIC ACID 500 MG TABLET PO SCH (09:55)
[2022-08-13] MEDS: LACTULOSE 20 GM/30 ML UDC PO SCH (09:55)
[2022-08-13] MEDS: ENOXAPARIN SODIUM 40 MG/0.4 ML SYRINGE SQ SCH (09:56)
[2022-08-13] MEDS: MULTIVITAMINS TAB 1 TABLET PO SCH (09:56)
[2022-08-13] MEDS: ATORVASTATIN 20 MG TABLET PO SCH (09:56)
[2022-08-13] MEDS: ASPIRIN 81 MG TABLET(ECOTRIN) PO SCH (09:56)
[2022-08-13] MEDS: ACETAMINOPHEN 325 MG TABLET PO PRN (10:24)
[2022-08-13] MEDS: DIVALPROEX SODIUM 500 MG TABLET( DEPAKOTE) PO SCH ×2 (10:43→20:59)
[2022-08-13 16:25] LABS: INR 1.1 (0.80-1.20); PROTHROMBIN TIME 11.1 SECS (9.5-12.5)
[2022-08-13] MEDS: CEFEPIME 2 GM in D5W 100 ML IV SCH (18:22)
[2022-08-13] MEDS: OLANZapine 10 MG TABLET PO SCH (20:59)
[2022-08-14] VITALS (30 sets, daily range): BP systolic 111–151
[2022-08-14] MEDS: CEFEPIME 2 GM in D5W 100 ML IV SCH ×2 (05:41→17:49)
[2022-08-14] MEDS: INSULIN LISPRO SLIDING SCALE 100 UNITS/ML, 3 ML VIAL (humaLOG) SUBCUT PRN ×2 (05:42→13:35)
[2022-08-14] MEDS: D5W 1,000 ML IV SCH ×2 (06:18→10:08)
[2022-08-14 06:44] LABS: BASOPHILS # (AUTO) 0.1 K/uL (0.0-0.2); BASOPHILS % (AUTO) 0.7 % (0.0-2.0); EOSINOPHILS # (AUTO) 0.7 K/uL (0.0-0.4); EOSINOPHILS % (AUTO) 8.5 % (0.0-4.0); HEMATOCRIT 28.3 % (36-54); HEMOGLOBIN 9.9 g/dL (14.0-18.0); LYMPHOCYTES # (AUTO) 1.5 K/uL (1.0-5.5); LYMPHOCYTES % (AUTO) 18.3 % (20.5-51.5); MEAN CORPUSCULAR HEMOGLOBIN 32 pg (27-31); MEAN CORPUSCULAR HGB CONC 35 % (32-36); MEAN CORPUSCULAR VOLUME 91 fL (79.0-98.0); MONOCYTES # (AUTO) 0.7 K/uL (0.0-1.0); MONOCYTES % (AUTO) 8.5 % (1.7-9.3); NEUTROPHILS # (AUTO) 5.1 K/uL (1.8-7.7); PLATELET COUNT (AUTO) 335 K/uL (130-430); RED BLOOD CELL COUNT(AUTO) 3.13 MIL/uL (4.2-6.2); RED CELL DISTRIBUTION WIDTH 14.2 % (9.0-15.0)
[2022-08-14 06:59] LABS: ALBUMIN 1.9 g/dL (3.4-4.8); CALCIUM 8.3 mg/dL (8.4-11.0); CREATININE 1.24 mg/dL (0.55-1.30); PHOSPHORUS 4.1 mg/dL (2.7-4.5); TOTAL BILIRUBIN 0.3 mg/dL (0.0-1.0)
[2022-08-14] MEDS: ENOXAPARIN SODIUM 40 MG/0.4 ML SYRINGE SQ SCH (09:00)
[2022-08-14] MEDS: ASPIRIN 81 MG TABLET(ECOTRIN) PO SCH (09:00)
[2022-08-14] MEDS: levETIRAcetam 1,000 MG in NS 100 ML IV SCH ×2 (09:17→20:29)
[2022-08-14] MEDS: LACTULOSE 20 GM/30 ML UDC PO SCH (09:23)
[2022-08-14] MEDS: DIVALPROEX SODIUM 500 MG TABLET( DEPAKOTE) PO SCH ×2 (09:24→20:29)
[2022-08-14] MEDS: MULTIVITAMINS TAB 1 TABLET PO SCH (09:24)
[2022-08-14] MEDS: ATORVASTATIN 20 MG TABLET PO SCH (09:24)
[2022-08-14] MEDS: ASCORBIC ACID 500 MG TABLET PO SCH (09:24)
[2022-08-14] MEDS: METOPROLOL TARTRATE 25 MG TABLET PO SCH ×2 (09:26→20:30)
[2022-08-14] MEDS: amLODIPine BESYLATE 5 MG TABLET PO SCH (09:30)
[2022-08-14] MEDS: LOSARTAN POTASSIUM 25 MG TABLET PO SCH (09:30)
[2022-08-14] MEDS: BALSAM PERU/CASTOR OIL 56.7 GM OINT...G. TP SCH (09:32)
[2022-08-14] MEDS: INSULIN NPH 100 UNITS/ML 10 ML VIAL SUBCUT SCH ×2 (10:48→20:31)
[2022-08-14] MEDS: OLANZapine 10 MG TABLET PO SCH (20:29)
[2022-08-15] VITALS (29 sets, daily range): BP systolic 107–148
[2022-08-15] MEDS: D5W 1,000 ML IV SCH ×2 (04:39→23:36)
[2022-08-15] MEDS: CEFEPIME 2 GM in D5W 100 ML IV SCH (05:17)
[2022-08-15] MEDS: VANCOMYCIN HCL 750 MG in NS 250 ML IV SCH (06:38)
[2022-08-15 07:03] LABS: BASOPHILS # (AUTO) 0.1 K/uL (0.0-0.2); BASOPHILS % (AUTO) 0.7 % (0.0-2.0); EOSINOPHILS # (AUTO) 0.6 K/uL (0.0-0.4); EOSINOPHILS % (AUTO) 7.9 % (0.0-4.0); HEMATOCRIT 30.3 % (36-54); HEMOGLOBIN 10.3 g/dL (14.0-18.0); LYMPHOCYTES # (AUTO) 1.7 K/uL (1.0-5.5); LYMPHOCYTES % (AUTO) 21.3 % (20.5-51.5); MEAN CORPUSCULAR HEMOGLOBIN 31 pg (27-31); MEAN CORPUSCULAR HGB CONC 34 % (32-36); MEAN CORPUSCULAR VOLUME 91 fL (79.0-98.0); MONOCYTES # (AUTO) 0.8 K/uL (0.0-1.0); MONOCYTES % (AUTO) 9.9 % (1.7-9.3); NEUTROPHILS # (AUTO) 4.7 K/uL (1.8-7.7); NEUTROPHILS % (AUTO) 60.2 % (40.0-70.0); PLATELET COUNT (AUTO) 337 K/uL (130-430); RED BLOOD CELL COUNT(AUTO) 3.34 MIL/uL (4.2-6.2); RED CELL DISTRIBUTION WIDTH 14.5 % (9.0-15.0); WHITE BLOOD COUNT (AUTO) 7.8 K/uL (4.8-10.8)
[2022-08-15 08:24] LABS: ALBUMIN 1.9 g/dL (3.4-4.8); CALCIUM 8.9 mg/dL (8.4-11.0); CREATININE 1.19 mg/dL (0.55-1.30); PHOSPHORUS 3.9 mg/dL (2.7-4.5); TOTAL BILIRUBIN 0.3 mg/dL (0.0-1.0)
[2022-08-15] MEDS: LOSARTAN POTASSIUM 25 MG TABLET PO SCH (09:00)
[2022-08-15] MEDS: amLODIPine BESYLATE 5 MG TABLET PO SCH (09:00)
[2022-08-15] MEDS: ASPIRIN 81 MG TABLET(ECOTRIN) PO SCH (09:00)
[2022-08-15] MEDS: levETIRAcetam 1,000 MG in NS 100 ML IV SCH ×2 (10:23→20:54)
[2022-08-15] MEDS: DIVALPROEX SODIUM 500 MG TABLET( DEPAKOTE) PO SCH ×2 (10:29→20:55)
[2022-08-15] MEDS: LACTULOSE 20 GM/30 ML UDC PO SCH (10:31)
[2022-08-15] MEDS: MULTIVITAMINS TAB 1 TABLET PO SCH (10:32)
[2022-08-15] MEDS: ASCORBIC ACID 500 MG TABLET PO SCH (10:40)
[2022-08-15] MEDS: BALSAM PERU/CASTOR OIL 56.7 GM OINT...G. TP SCH (10:41)
[2022-08-15] MEDS: METOPROLOL TARTRATE 25 MG TABLET PO SCH ×2 (10:47→20:55)
[2022-08-15] MEDS: ATORVASTATIN 20 MG TABLET PO SCH (10:56)
[2022-08-15] MEDS: INSULIN NPH 100 UNITS/ML 10 ML VIAL SUBCUT SCH ×2 (11:23→20:56)
[2022-08-15] MEDS ORDERED: SEVOFLURANE 15 MIN GAS INH ONE (18:27)
[2022-08-15] MEDS ORDERED: BUPIVACAINE /EPINEPHRINE/PF 0.25% 30 ML VIAL ONE (18:27)
[2022-08-15] MEDS ORDERED: ROCURONIUM BROMIDE 10 MG/ML (ZEMURON) ONE (18:27)
[2022-08-15] MEDS ORDERED: NS IRRIG SOLN 1000 ML IR ONE (18:27)
[2022-08-15] MEDS ORDERED: ePHEDrine sulfate 50 MG/ML VIAL ONE (18:27)
[2022-08-15] MEDS ORDERED: LR 1,000 ML IV.SOLN IV ONE (18:27)
[2022-08-15] MEDS: OLANZapine 10 MG TABLET PO SCH (20:55)
[2022-08-16] VITALS (30 sets, daily range): BP systolic 117–146
[2022-08-16] MEDS: CEFEPIME 2 GM in D5W 100 ML IV SCH ×2 (05:02→17:47)
[2022-08-16] MEDS: VANCOMYCIN HCL 750 MG in NS 250 ML IV SCH ×2 (05:59→18:57)
[2022-08-16 06:34] LABS: BASOPHILS # (AUTO) 0.1 K/uL (0.0-0.2); BASOPHILS % (AUTO) 0.7 % (0.0-2.0); EOSINOPHILS # (AUTO) 0.4 K/uL (0.0-0.4); EOSINOPHILS % (AUTO) 4.7 % (0.0-4.0); HEMATOCRIT 28.9 % (36-54); HEMOGLOBIN 9.8 g/dL (14.0-18.0); LYMPHOCYTES # (AUTO) 1.5 K/uL (1.0-5.5); LYMPHOCYTES % (AUTO) 18.8 % (20.5-51.5); MEAN CORPUSCULAR HEMOGLOBIN 31 pg (27-31); MEAN CORPUSCULAR HGB CONC 34 % (32-36); MEAN CORPUSCULAR VOLUME 92 fL (79.0-98.0); MONOCYTES # (AUTO) 0.7 K/uL (0.0-1.0); MONOCYTES % (AUTO) 8.4 % (1.7-9.3); NEUTROPHILS # (AUTO) 5.3 K/uL (1.8-7.7); NEUTROPHILS % (AUTO) 67.4 % (40.0-70.0); PLATELET COUNT (AUTO) 346 K/uL (130-430); RED BLOOD CELL COUNT(AUTO) 3.15 MIL/uL (4.2-6.2); WHITE BLOOD COUNT (AUTO) 7.9 K/uL (4.8-10.8)
[2022-08-16 06:53] LABS: CALCIUM 8.5 mg/dL (8.4-11.0); CREATININE 1.2 mg/dL (0.55-1.30)
[2022-08-16] MEDS: LOSARTAN POTASSIUM 25 MG TABLET PO SCH (08:43)
[2022-08-16] MEDS: ASPIRIN 81 MG TABLET(ECOTRIN) PO SCH (08:44)
[2022-08-16] MEDS: LACTULOSE 20 GM/30 ML UDC PO SCH (08:44)
[2022-08-16] MEDS: DIVALPROEX SODIUM 500 MG TABLET( DEPAKOTE) PO SCH ×2 (08:44→21:51)
[2022-08-16] MEDS: ASCORBIC ACID 500 MG TABLET PO SCH (08:45)
[2022-08-16] MEDS: MULTIVITAMINS TAB 1 TABLET PO SCH (08:48)
[2022-08-16] MEDS: METOPROLOL TARTRATE 25 MG TABLET PO SCH ×2 (08:48→21:50)
[2022-08-16] MEDS: amLODIPine BESYLATE 5 MG TABLET PO SCH (08:49)
[2022-08-16] MEDS: levETIRAcetam 1,000 MG in NS 100 ML IV SCH ×2 (08:52→21:52)
[2022-08-16] MEDS: BALSAM PERU/CASTOR OIL 56.7 GM OINT...G. TP SCH (08:53)
[2022-08-16] MEDS: INSULIN NPH 100 UNITS/ML 10 ML VIAL SUBCUT SCH (08:57)
[2022-08-16] MEDS ORDERED: ATORVASTATIN 20 MG TABLET ONE (11:10)
[2022-08-16] MEDS: ENOXAPARIN SODIUM 40 MG/0.4 ML SYRINGE SUBCUT SCH (11:10)
[2022-08-16] MEDS: ATORVASTATIN 20 MG TABLET PO SCH (11:10)
[2022-08-16 11:34] LABS: CREATININE, URINE 61.7 mg/dL; MICROALBUMIN URINE RANDOM 51.9 ug/ml (NOT ESTABLISHED)
[2022-08-16] MEDS ORDERED: CEFAZOLIN 2 GM IVPB PREMIX 50 ML IV ONE (12:55)
[2022-08-16] MEDS ORDERED: TRIAMCINOLONE ACETONIDE 0.025% 15 GM CREAM.GM. TP PRN (13:45)
[2022-08-16] MEDS: OLANZapine 10 MG TABLET PO SCH (21:49)
[2022-08-17 00:41] VITALS: BP_SYST 116
[2022-08-17] MEDS ORDERED: INSULIN NPH 100 UNITS/ML 10 ML VIAL SUBCUT ONE (00:45)
[2022-08-17] MEDS: D5W 1,000 ML IV SCH ×2 (00:55→16:44)
[2022-08-17 02:39] VITALS: BP_SYST 142
[2022-08-17] MEDS: CEFEPIME 2 GM in D5W 100 ML IV SCH ×2 (05:52→17:25)
[2022-08-17] MEDS: INSULIN LISPRO SLIDING SCALE 100 UNITS/ML, 3 ML VIAL (humaLOG) SUBCUT PRN (06:00)
[2022-08-17 06:12] LABS: BASOPHILS # (AUTO) 0.1 K/uL (0.0-0.2); BASOPHILS % (AUTO) 0.8 % (0.0-2.0); EOSINOPHILS # (AUTO) 0.5 K/uL (0.0-0.4); EOSINOPHILS % (AUTO) 5.8 % (0.0-4.0); HEMATOCRIT 27.3 % (36-54); HEMOGLOBIN 9.2 g/dL (14.0-18.0); LYMPHOCYTES # (AUTO) 1.5 K/uL (1.0-5.5); LYMPHOCYTES % (AUTO) 18.7 % (20.5-51.5); MEAN CORPUSCULAR HEMOGLOBIN 31 pg (27-31); MEAN CORPUSCULAR HGB CONC 34 % (32-36); MEAN CORPUSCULAR VOLUME 92 fL (79.0-98.0); MONOCYTES # (AUTO) 0.7 K/uL (0.0-1.0); MONOCYTES % (AUTO) 8.2 % (1.7-9.3); NEUTROPHILS # (AUTO) 5.3 K/uL (1.8-7.7); NEUTROPHILS % (AUTO) 66.5 % (40.0-70.0); PLATELET COUNT (AUTO) 308 K/uL (130-430); RED BLOOD CELL COUNT(AUTO) 2.97 MIL/uL (4.2-6.2); RED CELL DISTRIBUTION WIDTH 13.9 % (9.0-15.0)
[2022-08-17 06:25] LABS: CALCIUM 8.4 mg/dL (8.4-11.0); CREATININE 1.22 mg/dL (0.55-1.30)
[2022-08-17] MEDS: VANCOMYCIN HCL 750 MG in NS 250 ML IV SCH ×2 (06:59→17:27)
[2022-08-17 08:00] VITALS: BP_SYST 134
[2022-08-17] MEDS: levETIRAcetam 1,000 MG in NS 100 ML IV SCH ×2 (08:27→21:44)
[2022-08-17] MEDS: LACTULOSE 20 GM/30 ML UDC PO SCH (08:27)
[2022-08-17] MEDS: ATORVASTATIN 20 MG TABLET PO SCH (08:28)
[2022-08-17] MEDS: METOPROLOL TARTRATE 25 MG TABLET PO SCH (08:28)
[2022-08-17] MEDS: ASPIRIN 81 MG TABLET(ECOTRIN) PO SCH (08:28)
[2022-08-17] MEDS: amLODIPine BESYLATE 5 MG TABLET PO SCH (08:29)
[2022-08-17] MEDS: ASCORBIC ACID 500 MG TABLET PO SCH (08:29)
[2022-08-17] MEDS: DIVALPROEX SODIUM 500 MG TABLET( DEPAKOTE) PO SCH (08:29)
[2022-08-17] MEDS: ENOXAPARIN SODIUM 40 MG/0.4 ML SYRINGE SUBCUT SCH (08:30)
[2022-08-17] MEDS: MULTIVITAMINS TAB 1 TABLET PO SCH (08:30)
[2022-08-17] MEDS: LOSARTAN POTASSIUM 25 MG TABLET PO SCH (08:30)
[2022-08-17] MEDS: INSULIN NPH 100 UNITS/ML 10 ML VIAL SUBCUT SCH ×2 (08:31→21:50)
[2022-08-17] MEDS: BALSAM PERU/CASTOR OIL 56.7 GM OINT...G. TP SCH (08:50)
[2022-08-17 12:00] VITALS: BP_SYST 138
[2022-08-17 16:00] VITALS: BP_SYST 136
[2022-08-17] MEDS ORDERED: COMMUNICATION ORDER XX ONE (19:30)
[2022-08-17] MEDS ORDERED: ACETAMINOPHEN 325 MG TABLET GT PRN (19:31)
[2022-08-17 20:00] VITALS: BP_SYST 125
[2022-08-17] MEDS: DIVALPROEX SODIUM 125 MG CAP.(DEPAKOTE SPRINKLE) GT SCH (21:41)
[2022-08-17] MEDS: OLANZapine 10 MG TABLET GT SCH (21:42)
[2022-08-17] MEDS: METOPROLOL TARTRATE 25 MG TABLET GT SCH (21:42)
[2022-08-18 00:14] VITALS: BP_SYST 116
[2022-08-18] MEDS: CEFEPIME 2 GM in D5W 100 ML IV SCH ×2 (05:15→17:00)
[2022-08-18] MEDS: INSULIN LISPRO SLIDING SCALE 100 UNITS/ML, 3 ML VIAL (humaLOG) SUBCUT PRN ×2 (06:00→12:00)
[2022-08-18] MEDS: VANCOMYCIN HCL 750 MG in NS 250 ML IV SCH ×2 (06:01→17:52)
[2022-08-18] MEDS: D5W 1,000 ML IV SCH ×2 (06:01→22:59)
[2022-08-18 06:13] LABS: BASOPHILS # (AUTO) 0.1 K/uL (0.0-0.2); BASOPHILS % (AUTO) 0.6 % (0.0-2.0); EOSINOPHILS # (AUTO) 0.4 K/uL (0.0-0.4); EOSINOPHILS % (AUTO) 4.1 % (0.0-4.0); HEMATOCRIT 28.7 % (36-54); HEMOGLOBIN 9.5 g/dL (14.0-18.0); LYMPHOCYTES # (AUTO) 2.1 K/uL (1.0-5.5); LYMPHOCYTES % (AUTO) 24.4 % (20.5-51.5); MEAN CORPUSCULAR HEMOGLOBIN 31 pg (27-31); MEAN CORPUSCULAR HGB CONC 33 % (32-36); MEAN CORPUSCULAR VOLUME 94 fL (79.0-98.0); MONOCYTES # (AUTO) 0.6 K/uL (0.0-1.0); MONOCYTES % (AUTO) 6.8 % (1.7-9.3); NEUTROPHILS # (AUTO) 5.5 K/uL (1.8-7.7); NEUTROPHILS % (AUTO) 64.1 % (40.0-70.0); PLATELET COUNT (AUTO) 308 K/uL (130-430); RED BLOOD CELL COUNT(AUTO) 3.07 MIL/uL (4.2-6.2); RED CELL DISTRIBUTION WIDTH 14.2 % (9.0-15.0); WHITE BLOOD COUNT (AUTO) 8.5 K/uL (4.8-10.8)
[2022-08-18 06:22] LABS: CALCIUM 8.5 mg/dL (8.4-11.0); CREATININE 1.29 mg/dL (0.55-1.30)
[2022-08-18 08:00] VITALS: BP_SYST 123
[2022-08-18] MEDS: ENOXAPARIN SODIUM 40 MG/0.4 ML SYRINGE SUBCUT SCH (09:16)
[2022-08-18] MEDS: levETIRAcetam 1,000 MG in NS 100 ML IV SCH ×2 (09:16→22:45)
[2022-08-18] MEDS: ASCORBIC ACID 500 MG TABLET GT SCH (09:17)
[2022-08-18] MEDS: ASPIRIN 81 MG TABLET(ECOTRIN) GT SCH (09:17)
[2022-08-18] MEDS: ATORVASTATIN 20 MG TABLET GT SCH (09:17)
[2022-08-18] MEDS: METOPROLOL TARTRATE 25 MG TABLET GT SCH ×2 (09:18→22:47)
[2022-08-18] MEDS: amLODIPine BESYLATE 5 MG TABLET GT SCH (09:18)
[2022-08-18] MEDS: MULTIVITAMINS TAB 1 TABLET GT SCH (09:18)
[2022-08-18] MEDS: DIVALPROEX SODIUM 125 MG CAP.(DEPAKOTE SPRINKLE) GT SCH ×2 (09:19→22:46)
[2022-08-18] MEDS: LOSARTAN POTASSIUM 25 MG TABLET GT SCH (09:19)
[2022-08-18] MEDS: LACTULOSE 20 GM/30 ML UDC GT SCH (09:26)
[2022-08-18] MEDS: INSULIN NPH 100 UNITS/ML 10 ML VIAL SUBCUT SCH ×2 (09:29→22:56)
[2022-08-18] MEDS: BALSAM PERU/CASTOR OIL 56.7 GM OINT...G. TP SCH (09:30)
[2022-08-18 12:00] VITALS: BP_SYST 120
[2022-08-18 16:37] VITALS: BP_SYST 121
[2022-08-18 20:00] VITALS: BP_SYST 140
[2022-08-18] MEDS: OLANZapine 10 MG TABLET GT SCH (22:46)
[2022-08-19 02:57] VITALS: BP_SYST 114
[2022-08-19] MEDS: CEFEPIME 2 GM in D5W 100 ML IV SCH ×2 (05:16→18:14)
[2022-08-19] MEDS: INSULIN LISPRO SLIDING SCALE 100 UNITS/ML, 3 ML VIAL (humaLOG) SUBCUT PRN ×2 (05:17→11:57)
[2022-08-19 06:22] LABS: BASOPHILS # (AUTO) 0.1 K/uL (0.0-0.2); BASOPHILS % (AUTO) 0.9 % (0.0-2.0); CALCIUM 8.3 mg/dL (8.4-11.0); CREATININE 1.29 mg/dL (0.55-1.30); EOSINOPHILS # (AUTO) 0.5 K/uL (0.0-0.4); EOSINOPHILS % (AUTO) 6.1 % (0.0-4.0); HEMATOCRIT 27.4 % (36-54); HEMOGLOBIN 9.4 g/dL (14.0-18.0); LYMPHOCYTES # (AUTO) 1.9 K/uL (1.0-5.5); LYMPHOCYTES % (AUTO) 21.6 % (20.5-51.5); MEAN CORPUSCULAR HEMOGLOBIN 32 pg (27-31); MEAN CORPUSCULAR HGB CONC 34 % (32-36); MEAN CORPUSCULAR VOLUME 93 fL (79.0-98.0); MONOCYTES # (AUTO) 0.6 K/uL (0.0-1.0); MONOCYTES % (AUTO) 7.1 % (1.7-9.3); NEUTROPHILS # (AUTO) 5.7 K/uL (1.8-7.7); NEUTROPHILS % (AUTO) 64.3 % (40.0-70.0); PLATELET COUNT (AUTO) 296 K/uL (130-430); RED BLOOD CELL COUNT(AUTO) 2.96 MIL/uL (4.2-6.2); RED CELL DISTRIBUTION WIDTH 13.9 % (9.0-15.0); WHITE BLOOD COUNT (AUTO) 8.9 K/uL (4.8-10.8)
[2022-08-19 08:00] VITALS: BP_SYST 131
[2022-08-19] MEDS: ASCORBIC ACID 500 MG TABLET GT SCH (11:03)
[2022-08-19] MEDS: ENOXAPARIN SODIUM 40 MG/0.4 ML SYRINGE SUBCUT SCH (11:03)
[2022-08-19] MEDS: LACTULOSE 20 GM/30 ML UDC GT SCH (11:03)
[2022-08-19] MEDS: ASPIRIN 81 MG TABLET(ECOTRIN) GT SCH (11:03)
[2022-08-19] MEDS: LOSARTAN POTASSIUM 25 MG TABLET GT SCH (11:05)
[2022-08-19] MEDS: MULTIVITAMINS TAB 1 TABLET GT SCH (11:06)
[2022-08-19] MEDS: ATORVASTATIN 20 MG TABLET GT SCH (11:07)
[2022-08-19] MEDS: amLODIPine BESYLATE 5 MG TABLET GT SCH (11:07)
[2022-08-19] MEDS: METOPROLOL TARTRATE 25 MG TABLET GT SCH ×2 (11:08→21:00)
[2022-08-19] MEDS: DIVALPROEX SODIUM 125 MG CAP.(DEPAKOTE SPRINKLE) GT SCH ×2 (11:11→21:49)
[2022-08-19] MEDS: levETIRAcetam 1,000 MG in NS 100 ML IV SCH ×2 (11:14→21:50)
[2022-08-19 11:15] VITALS: BP_SYST 133
[2022-08-19] MEDS: D5W 1,000 ML IV SCH (11:36)
[2022-08-19] MEDS: BALSAM PERU/CASTOR OIL 56.7 GM OINT...G. TP SCH (11:36)
[2022-08-19] MEDS: INSULIN NPH 100 UNITS/ML 10 ML VIAL SUBCUT SCH ×2 (11:59→22:01)
[2022-08-19 17:06] VITALS: BP_SYST 135
[2022-08-19] MEDS ORDERED: NACL 0.9% 1,000 ML IV SCH (18:15)
[2022-08-19 19:35] VITALS: BP_SYST 113
[2022-08-19] MEDS: OLANZapine 10 MG TABLET GT SCH (21:49)
[2022-08-20 01:16] VITALS: BP_SYST 131
[2022-08-20 08:16] LABS: BASOPHILS # (AUTO) 0.1 K/uL (0.0-0.2); BASOPHILS % (AUTO) 0.7 % (0.0-2.0); EOSINOPHILS # (AUTO) 0.5 K/uL (0.0-0.4); EOSINOPHILS % (AUTO) 5.2 % (0.0-4.0); HEMATOCRIT 28.4 % (36-54); HEMOGLOBIN 9.5 g/dL (14.0-18.0); LYMPHOCYTES % (AUTO) 21.5 % (20.5-51.5); MEAN CORPUSCULAR HEMOGLOBIN 31 pg (27-31); MEAN CORPUSCULAR HGB CONC 33 % (32-36); MEAN CORPUSCULAR VOLUME 93 fL (79.0-98.0); MONOCYTES # (AUTO) 0.6 K/uL (0.0-1.0); MONOCYTES % (AUTO) 6.6 % (1.7-9.3); NEUTROPHILS # (AUTO) 6.1 K/uL (1.8-7.7); PLATELET COUNT (AUTO) 293 K/uL (130-430); RED BLOOD CELL COUNT(AUTO) 3.07 MIL/uL (4.2-6.2); WHITE BLOOD COUNT (AUTO) 9.2 K/uL (4.8-10.8)
[2022-08-20 08:34] VITALS: BP_SYST 134
[2022-08-20 08:40] LABS: CALCIUM 8.2 mg/dL (8.4-11.0); CREATININE 1.29 mg/dL (0.55-1.30)
[2022-08-20] MEDS: ENOXAPARIN SODIUM 40 MG/0.4 ML SYRINGE SUBCUT SCH (09:43)
[2022-08-20] MEDS: ATORVASTATIN 20 MG TABLET GT SCH (09:43)
[2022-08-20] MEDS: ASPIRIN 81 MG TABLET(ECOTRIN) GT SCH (09:44)
[2022-08-20] MEDS: LACTULOSE 20 GM/30 ML UDC GT SCH (09:44)
[2022-08-20] MEDS: ASCORBIC ACID 500 MG TABLET GT SCH (09:45)
[2022-08-20] MEDS: INSULIN NPH 100 UNITS/ML 10 ML VIAL SUBCUT SCH ×2 (09:48→21:00)
[2022-08-20] MEDS: levETIRAcetam 1,000 MG in NS 100 ML IV SCH ×2 (09:51→21:02)
[2022-08-20] MEDS: MULTIVITAMINS TAB 1 TABLET GT SCH (10:51)
[2022-08-20] MEDS: LOSARTAN POTASSIUM 25 MG TABLET GT SCH (10:51)
[2022-08-20] MEDS: METOPROLOL TARTRATE 25 MG TABLET GT SCH ×2 (10:54→21:03)
[2022-08-20] MEDS: BALSAM PERU/CASTOR OIL 56.7 GM OINT...G. TP SCH (10:55)
[2022-08-20 11:00] VITALS: BP_SYST 124
[2022-08-20] MEDS: amLODIPine BESYLATE 5 MG TABLET GT SCH (11:00)
[2022-08-20] MEDS: DIVALPROEX SODIUM 125 MG CAP.(DEPAKOTE SPRINKLE) GT SCH ×2 (11:51→21:00)
[2022-08-20] MEDS: D5W 1,000 ML IV SCH (14:10)
[2022-08-20 15:35] VITALS: BP_SYST 124
[2022-08-20 16:00] VITALS: BP_SYST 124
[2022-08-20 19:20] VITALS: BP_SYST 118
[2022-08-20] MEDS: OLANZapine 10 MG TABLET GT SCH (21:01)
[2022-08-21] VITALS (7 sets, daily range): BP systolic 113–131
[2022-08-21] MEDS: D5W 1,000 ML IV SCH ×3 (05:27→19:00)
[2022-08-21] MEDS: INSULIN LISPRO SLIDING SCALE 100 UNITS/ML, 3 ML VIAL (humaLOG) SUBCUT PRN ×4 (05:33→23:01)
[2022-08-21 07:18] LABS: BASOPHILS # (AUTO) 0.1 K/uL (0.0-0.2); BASOPHILS % (AUTO) 0.6 % (0.0-2.0); EOSINOPHILS # (AUTO) 0.3 K/uL (0.0-0.4); EOSINOPHILS % (AUTO) 3.1 % (0.0-4.0); HEMATOCRIT 28.4 % (36-54); HEMOGLOBIN 9.3 g/dL (14.0-18.0); LYMPHOCYTES % (AUTO) 18.2 % (20.5-51.5); MEAN CORPUSCULAR HEMOGLOBIN 31 pg (27-31); MEAN CORPUSCULAR HGB CONC 33 % (32-36); MEAN CORPUSCULAR VOLUME 94 fL (79.0-98.0); MONOCYTES # (AUTO) 0.7 K/uL (0.0-1.0); MONOCYTES % (AUTO) 6.6 % (1.7-9.3); NEUTROPHILS # (AUTO) 7.8 K/uL (1.8-7.7); NEUTROPHILS % (AUTO) 71.5 % (40.0-70.0); PLATELET COUNT (AUTO) 261 K/uL (130-430); RED BLOOD CELL COUNT(AUTO) 3.02 MIL/uL (4.2-6.2); RED CELL DISTRIBUTION WIDTH 13.8 % (9.0-15.0); WHITE BLOOD COUNT (AUTO) 10.9 K/uL (4.8-10.8)
[2022-08-21 07:42] LABS: CALCIUM 8.1 mg/dL (8.4-11.0); CREATININE 1.34 mg/dL (0.55-1.30)
[2022-08-21] MEDS: ENOXAPARIN SODIUM 40 MG/0.4 ML SYRINGE SUBCUT SCH (08:41)
[2022-08-21] MEDS: LACTULOSE 20 GM/30 ML UDC GT SCH (08:42)
[2022-08-21] MEDS: DIVALPROEX SODIUM 125 MG CAP.(DEPAKOTE SPRINKLE) GT SCH ×2 (08:43→20:04)
[2022-08-21] MEDS: METOPROLOL TARTRATE 25 MG TABLET GT SCH ×2 (08:44→20:05)
[2022-08-21] MEDS: MULTIVITAMINS TAB 1 TABLET GT SCH (08:45)
[2022-08-21] MEDS: ATORVASTATIN 20 MG TABLET GT SCH (08:45)
[2022-08-21] MEDS: LOSARTAN POTASSIUM 25 MG TABLET GT SCH (08:46)
[2022-08-21] MEDS: ASPIRIN 81 MG TABLET(ECOTRIN) GT SCH (08:46)
[2022-08-21] MEDS: amLODIPine BESYLATE 5 MG TABLET GT SCH (08:47)
[2022-08-21] MEDS: BALSAM PERU/CASTOR OIL 56.7 GM OINT...G. TP SCH (09:19)
[2022-08-21] MEDS: levETIRAcetam 1,000 MG in NS 100 ML IV SCH ×2 (09:20→20:04)
[2022-08-21] MEDS: INSULIN NPH 100 UNITS/ML 10 ML VIAL SUBCUT SCH ×2 (09:25→20:25)
[2022-08-21] MEDS: ASCORBIC ACID 500 MG TABLET GT SCH (11:01)
[2022-08-21] MEDS: OLANZapine 10 MG TABLET GT SCH (20:04)
[2022-08-22] VITALS: BP_SYST 124
[2022-08-22] MEDS: D5W 1,000 ML IV SCH ×2 (05:50→16:03)
[2022-08-22] MEDS: INSULIN LISPRO SLIDING SCALE 100 UNITS/ML, 3 ML VIAL (humaLOG) SUBCUT PRN ×4 (05:54→22:31)
[2022-08-22 06:35] LABS: BASOPHILS # (AUTO) 0.1 K/uL (0.0-0.2); BASOPHILS % (AUTO) 0.8 % (0.0-2.0); EOSINOPHILS # (AUTO) 0.5 K/uL (0.0-0.4); EOSINOPHILS % (AUTO) 5.4 % (0.0-4.0); HEMATOCRIT 25.2 % (36-54); HEMOGLOBIN 8.4 g/dL (14.0-18.0); LYMPHOCYTES # (AUTO) 1.8 K/uL (1.0-5.5); LYMPHOCYTES % (AUTO) 17.8 % (20.5-51.5); MEAN CORPUSCULAR HEMOGLOBIN 31 pg (27-31); MEAN CORPUSCULAR HGB CONC 33 % (32-36); MEAN CORPUSCULAR VOLUME 93 fL (79.0-98.0); MONOCYTES # (AUTO) 0.6 K/uL (0.0-1.0); MONOCYTES % (AUTO) 5.6 % (1.7-9.3); NEUTROPHILS % (AUTO) 70.4 % (40.0-70.0); PLATELET COUNT (AUTO) 237 K/uL (130-430); RED BLOOD CELL COUNT(AUTO) 2.72 MIL/uL (4.2-6.2); RED CELL DISTRIBUTION WIDTH 14.1 % (9.0-15.0); WHITE BLOOD COUNT (AUTO) 9.9 K/uL (4.8-10.8)
[2022-08-22 06:51] LABS: CALCIUM 8.2 mg/dL (8.4-11.0); CREATININE 1.28 mg/dL (0.55-1.30)
[2022-08-22] MEDS: LOSARTAN POTASSIUM 25 MG TABLET GT SCH (08:55)
[2022-08-22] MEDS: MULTIVITAMINS TAB 1 TABLET GT SCH (08:56)
[2022-08-22] MEDS: ASPIRIN 81 MG TABLET(ECOTRIN) GT SCH (08:56)
[2022-08-22] MEDS: ATORVASTATIN 20 MG TABLET GT SCH (08:57)
[2022-08-22] MEDS: DIVALPROEX SODIUM 125 MG CAP.(DEPAKOTE SPRINKLE) GT SCH ×2 (08:58→22:21)
[2022-08-22] MEDS: LACTULOSE 20 GM/30 ML UDC GT SCH (08:59)
[2022-08-22] MEDS: ASCORBIC ACID 500 MG TABLET GT SCH (08:59)
[2022-08-22] MEDS: METOPROLOL TARTRATE 25 MG TABLET GT SCH ×2 (09:00→22:23)
[2022-08-22] MEDS: ENOXAPARIN SODIUM 40 MG/0.4 ML SYRINGE SUBCUT SCH (09:00)
[2022-08-22] MEDS: BALSAM PERU/CASTOR OIL 56.7 GM OINT...G. TP SCH (09:01)
[2022-08-22] MEDS: levETIRAcetam 1,000 MG in NS 100 ML IV SCH ×2 (09:02→22:18)
[2022-08-22] MEDS: amLODIPine BESYLATE 5 MG TABLET GT SCH (09:04)
[2022-08-22] MEDS: INSULIN NPH 100 UNITS/ML 10 ML VIAL SUBCUT SCH ×2 (09:09→22:27)
[2022-08-22 13:43] VITALS: BP_SYST 114
[2022-08-22 17:38] VITALS: BP_SYST 103
[2022-08-22 20:00] VITALS: BP_SYST 115
[2022-08-22] MEDS: OLANZapine 10 MG TABLET GT SCH (22:21)
[2022-08-23 00:30] VITALS: BP_SYST 98
[2022-08-23] MEDS: D5W 1,000 ML IV SCH ×2 (02:43→12:34)
[2022-08-23 06:10] LABS: HEMATOCRIT 23.5 % (36-54); MEAN CORPUSCULAR HEMOGLOBIN 32 pg (27-31); MEAN CORPUSCULAR HGB CONC 34 % (32-36); MEAN CORPUSCULAR VOLUME 94 fL (79.0-98.0); PLATELET COUNT (AUTO) 237 K/uL (130-430); RED CELL DISTRIBUTION WIDTH 13.5 % (9.0-15.0); WHITE BLOOD COUNT (AUTO) 9.3 K/uL (4.8-10.8)
[2022-08-23 06:37] LABS: CALCIUM 8.1 mg/dL (8.4-11.0); CREATININE 1.29 mg/dL (0.55-1.30)
[2022-08-23] MEDS: INSULIN LISPRO SLIDING SCALE 100 UNITS/ML, 3 ML VIAL (humaLOG) SUBCUT PRN ×4 (06:44→20:53)
[2022-08-23 08:25] VITALS: BP_SYST 125
[2022-08-23] MEDS: levETIRAcetam 1,000 MG in NS 100 ML IV SCH ×2 (09:35→20:40)
[2022-08-23] MEDS: LACTULOSE 20 GM/30 ML UDC GT SCH (09:35)
[2022-08-23] MEDS: MULTIVITAMINS TAB 1 TABLET GT SCH (09:36)
[2022-08-23] MEDS: ASPIRIN 81 MG TABLET(ECOTRIN) GT SCH (09:36)
[2022-08-23] MEDS: METOPROLOL TARTRATE 25 MG TABLET GT SCH ×2 (09:37→20:44)
[2022-08-23] MEDS: LOSARTAN POTASSIUM 25 MG TABLET GT SCH (09:37)
[2022-08-23] MEDS: ASCORBIC ACID 500 MG TABLET GT SCH (09:38)
[2022-08-23] MEDS: amLODIPine BESYLATE 5 MG TABLET GT SCH (09:38)
[2022-08-23] MEDS: ATORVASTATIN 20 MG TABLET GT SCH (09:39)
[2022-08-23] MEDS: DIVALPROEX SODIUM 125 MG CAP.(DEPAKOTE SPRINKLE) GT SCH ×2 (09:39→20:41)
[2022-08-23] MEDS: INSULIN NPH 100 UNITS/ML 10 ML VIAL SUBCUT SCH ×2 (09:42→20:51)
[2022-08-23] MEDS: ENOXAPARIN SODIUM 40 MG/0.4 ML SYRINGE SUBCUT SCH (09:42)
[2022-08-23 11:14] VITALS: BP_SYST 138
[2022-08-23 12:51] LABS: BAND % (MANUAL) 5 % (0-6); BASOPHILS % (MANUAL) 0 % (0-2); EOSINOPHILS % (MANUAL) 7 % (0-7); LYMPHOCYTES % (MANUAL) 22 % (20-46); MONOCYTES % (MANUAL) 5 % (0-11)
[2022-08-23] MEDS: BALSAM PERU/CASTOR OIL 56.7 GM OINT...G. TP SCH (14:01)
[2022-08-23 15:51] VITALS: BP_SYST 107
[2022-08-23 19:51] VITALS: BP_SYST 115
[2022-08-23 20:00] VITALS: BP_SYST 115
[2022-08-23] MEDS: OLANZapine 10 MG TABLET GT SCH (20:41)
[2022-08-24] MEDS: D5W 1,000 ML IV SCH ×3 (00:36→17:00)
[2022-08-24] MEDS: INSULIN LISPRO SLIDING SCALE 100 UNITS/ML, 3 ML VIAL (humaLOG) SUBCUT PRN ×5 (00:38→23:21)
[2022-08-24 01:17] VITALS: BP_SYST 116
[2022-08-24 06:52] LABS: BASOPHILS # (AUTO) 0.1 K/uL (0.0-0.2); BASOPHILS % (AUTO) 0.8 % (0.0-2.0); EOSINOPHILS # (AUTO) 0.6 K/uL (0.0-0.4); EOSINOPHILS % (AUTO) 7.4 % (0.0-4.0); HEMOGLOBIN 8.6 g/dL (14.0-18.0); LYMPHOCYTES # (AUTO) 1.9 K/uL (1.0-5.5); LYMPHOCYTES % (AUTO) 21.7 % (20.5-51.5); MEAN CORPUSCULAR HEMOGLOBIN 32 pg (27-31); MEAN CORPUSCULAR HGB CONC 34 % (32-36); MEAN CORPUSCULAR VOLUME 92 fL (79.0-98.0); MONOCYTES # (AUTO) 0.7 K/uL (0.0-1.0); MONOCYTES % (AUTO) 7.8 % (1.7-9.3); NEUTROPHILS # (AUTO) 5.3 K/uL (1.8-7.7); NEUTROPHILS % (AUTO) 62.3 % (40.0-70.0); PLATELET COUNT (AUTO) 219 K/uL (130-430); RED CELL DISTRIBUTION WIDTH 13.3 % (9.0-15.0); WHITE BLOOD COUNT (AUTO) 8.5 K/uL (4.8-10.8)
[2022-08-24 07:48] LABS: CALCIUM 7.9 mg/dL (8.4-11.0); CREATININE 1.19 mg/dL (0.55-1.30)
[2022-08-24 07:50] VITALS: BP_SYST 121
[2022-08-24] MEDS: amLODIPine BESYLATE 5 MG TABLET GT SCH (09:26)
[2022-08-24] MEDS: METOPROLOL TARTRATE 25 MG TABLET GT SCH ×2 (09:26→21:00)
[2022-08-24] MEDS: ASPIRIN 81 MG TABLET(ECOTRIN) GT SCH (09:26)
[2022-08-24] MEDS: ATORVASTATIN 20 MG TABLET GT SCH (09:26)
[2022-08-24] MEDS: MULTIVITAMINS TAB 1 TABLET GT SCH (09:27)
[2022-08-24] MEDS: DIVALPROEX SODIUM 125 MG CAP.(DEPAKOTE SPRINKLE) GT SCH ×2 (09:27→20:59)
[2022-08-24] MEDS: LACTULOSE 20 GM/30 ML UDC GT SCH (09:27)
[2022-08-24] MEDS: ENOXAPARIN SODIUM 40 MG/0.4 ML SYRINGE SUBCUT SCH (09:27)
[2022-08-24] MEDS: ASCORBIC ACID 500 MG TABLET GT SCH (09:27)
[2022-08-24] MEDS: LOSARTAN POTASSIUM 25 MG TABLET GT SCH (09:27)
[2022-08-24] MEDS: levETIRAcetam 1,000 MG in NS 100 ML IV SCH ×2 (09:28→20:59)
[2022-08-24] MEDS: INSULIN NPH 100 UNITS/ML 10 ML VIAL SUBCUT SCH ×2 (09:37→21:03)
[2022-08-24 11:09] VITALS: BP_SYST 129
[2022-08-24] MEDS: BALSAM PERU/CASTOR OIL 56.7 GM OINT...G. TP SCH (12:16)
[2022-08-24 16:14] VITALS: BP_SYST 126
[2022-08-24 20:00] VITALS: BP_SYST 111
[2022-08-24] MEDS: OLANZapine 10 MG TABLET GT SCH (20:59)
[2022-08-24 23:30] VITALS: BP_SYST 111
[2022-08-25 00:10] VITALS: BP_SYST 115
[2022-08-25] MEDS: D5W 1,000 ML IV SCH ×3 (03:20→20:45)
[2022-08-25] MEDS: INSULIN LISPRO SLIDING SCALE 100 UNITS/ML, 3 ML VIAL (humaLOG) SUBCUT PRN ×3 (05:50→18:01)
[2022-08-25 06:48] LABS: BASOPHILS % (AUTO) 0.6 % (0.0-2.0); EOSINOPHILS # (AUTO) 0.7 K/uL (0.0-0.4); EOSINOPHILS % (AUTO) 8.9 % (0.0-4.0); HEMATOCRIT 24.9 % (36-54); HEMOGLOBIN 8.5 g/dL (14.0-18.0); LYMPHOCYTES # (AUTO) 1.9 K/uL (1.0-5.5); LYMPHOCYTES % (AUTO) 24.1 % (20.5-51.5); MEAN CORPUSCULAR HEMOGLOBIN 31 pg (27-31); MEAN CORPUSCULAR HGB CONC 34 % (32-36); MEAN CORPUSCULAR VOLUME 92 fL (79.0-98.0); MONOCYTES # (AUTO) 0.6 K/uL (0.0-1.0); MONOCYTES % (AUTO) 7.7 % (1.7-9.3); NEUTROPHILS # (AUTO) 4.5 K/uL (1.8-7.7); NEUTROPHILS % (AUTO) 58.7 % (40.0-70.0); PLATELET COUNT (AUTO) 236 K/uL (130-430); RED BLOOD CELL COUNT(AUTO) 2.71 MIL/uL (4.2-6.2); RED CELL DISTRIBUTION WIDTH 13.5 % (9.0-15.0); WHITE BLOOD COUNT (AUTO) 7.7 K/uL (4.8-10.8)
[2022-08-25 06:57] LABS: CALCIUM 7.9 mg/dL (8.4-11.0); CREATININE 1.09 mg/dL (0.55-1.30)
[2022-08-25 08:00] VITALS: BP_SYST 108
[2022-08-25] MEDS: ATORVASTATIN 20 MG TABLET GT SCH (08:39)
[2022-08-25] MEDS: DIVALPROEX SODIUM 125 MG CAP.(DEPAKOTE SPRINKLE) GT SCH ×2 (08:39→20:44)
[2022-08-25] MEDS: LOSARTAN POTASSIUM 25 MG TABLET GT SCH (08:39)
[2022-08-25] MEDS: ASPIRIN 81 MG TABLET(ECOTRIN) GT SCH (08:39)
[2022-08-25] MEDS: LACTULOSE 20 GM/30 ML UDC GT SCH (08:39)
[2022-08-25] MEDS: BALSAM PERU/CASTOR OIL 56.7 GM OINT...G. TP SCH (08:40)
[2022-08-25] MEDS: ASCORBIC ACID 500 MG TABLET GT SCH (08:40)
[2022-08-25] MEDS: MULTIVITAMINS TAB 1 TABLET GT SCH (08:40)
[2022-08-25] MEDS: amLODIPine BESYLATE 5 MG TABLET GT SCH (08:40)
[2022-08-25] MEDS: levETIRAcetam 1,000 MG in NS 100 ML IV SCH ×2 (08:40→20:44)
[2022-08-25] MEDS: METOPROLOL TARTRATE 25 MG TABLET GT SCH ×2 (08:40→20:44)
[2022-08-25] MEDS: ENOXAPARIN SODIUM 40 MG/0.4 ML SYRINGE SUBCUT SCH (08:41)
[2022-08-25] MEDS: INSULIN NPH 100 UNITS/ML 10 ML VIAL SUBCUT SCH ×2 (08:58→20:45)
[2022-08-25 11:25] VITALS: BP_SYST 137
[2022-08-25 15:20] VITALS: BP_SYST 108
[2022-08-25 20:00] VITALS: BP_SYST 124
[2022-08-25] MEDS: OLANZapine 10 MG TABLET GT SCH (20:44)
[2022-08-26 00:40] VITALS: BP_SYST 116
[2022-08-26] MEDS: INSULIN LISPRO SLIDING SCALE 100 UNITS/ML, 3 ML VIAL (humaLOG) SUBCUT PRN ×4 (06:30→21:53)
[2022-08-26 08:00] VITALS: BP_SYST 164
[2022-08-26] MEDS: levETIRAcetam 1,000 MG in NS 100 ML IV SCH ×2 (08:07→21:39)
[2022-08-26 08:14] LABS: BASOPHILS # (AUTO) 0.1 K/uL (0.0-0.2); BASOPHILS % (AUTO) 0.6 % (0.0-2.0); EOSINOPHILS # (AUTO) 0.7 K/uL (0.0-0.4); EOSINOPHILS % (AUTO) 8.8 % (0.0-4.0); HEMATOCRIT 24.5 % (36-54); HEMOGLOBIN 8.4 g/dL (14.0-18.0); LYMPHOCYTES # (AUTO) 1.9 K/uL (1.0-5.5); LYMPHOCYTES % (AUTO) 22.8 % (20.5-51.5); MEAN CORPUSCULAR HEMOGLOBIN 32 pg (27-31); MEAN CORPUSCULAR HGB CONC 34 % (32-36); MEAN CORPUSCULAR VOLUME 92 fL (79.0-98.0); MONOCYTES # (AUTO) 0.7 K/uL (0.0-1.0); MONOCYTES % (AUTO) 8.2 % (1.7-9.3); NEUTROPHILS % (AUTO) 59.6 % (40.0-70.0); PLATELET COUNT (AUTO) 265 K/uL (130-430); RED BLOOD CELL COUNT(AUTO) 2.66 MIL/uL (4.2-6.2); RED CELL DISTRIBUTION WIDTH 13.4 % (9.0-15.0); WHITE BLOOD COUNT (AUTO) 8.4 K/uL (4.8-10.8)
[2022-08-26 08:40] LABS: CALCIUM 8.1 mg/dL (8.4-11.0); CREATININE 0.99 mg/dL (0.55-1.30)
[2022-08-26] MEDS: BALSAM PERU/CASTOR OIL 56.7 GM OINT...G. TP SCH (08:50)
[2022-08-26] MEDS: ENOXAPARIN SODIUM 40 MG/0.4 ML SYRINGE SUBCUT SCH (08:50)
[2022-08-26] MEDS: INSULIN NPH 100 UNITS/ML 10 ML VIAL SUBCUT SCH ×2 (08:50→21:56)
[2022-08-26] MEDS: LACTULOSE 20 GM/30 ML UDC GT SCH (08:51)
[2022-08-26] MEDS: LOSARTAN POTASSIUM 25 MG TABLET GT SCH (08:51)
[2022-08-26] MEDS: METOPROLOL TARTRATE 25 MG TABLET GT SCH ×2 (08:51→21:44)
[2022-08-26] MEDS: DIVALPROEX SODIUM 125 MG CAP.(DEPAKOTE SPRINKLE) GT SCH ×2 (08:51→21:43)
[2022-08-26] MEDS: ATORVASTATIN 20 MG TABLET GT SCH (08:51)
[2022-08-26] MEDS: MULTIVITAMINS TAB 1 TABLET GT SCH (08:51)
[2022-08-26] MEDS: ASPIRIN 81 MG TABLET(ECOTRIN) GT SCH (08:51)
[2022-08-26] MEDS: amLODIPine BESYLATE 5 MG TABLET GT SCH (08:52)
[2022-08-26] MEDS: ASCORBIC ACID 500 MG TABLET GT SCH (08:52)
[2022-08-26] MEDS: D5W 1,000 ML IV SCH (10:27)
[2022-08-26 11:05] VITALS: BP_SYST 126
[2022-08-26] MEDS: PIPERACILLIN/TAZO 4.5GM/DEX-IS 100 ML IV SCH ×2 (13:33→22:24)
[2022-08-26 15:10] VITALS: BP_SYST 133
[2022-08-26 20:00] VITALS: BP_SYST 147
[2022-08-26] MEDS: OLANZapine 10 MG TABLET GT SCH (21:44)
[2022-08-27 00:50] VITALS: BP_SYST 126
[2022-08-27] MEDS: INSULIN LISPRO SLIDING SCALE 100 UNITS/ML, 3 ML VIAL (humaLOG) SUBCUT PRN ×5 (00:58→21:53)
[2022-08-27] MEDS: D5W 1,000 ML IV SCH ×3 (01:00→11:22)
[2022-08-27] MEDS: PIPERACILLIN/TAZO 4.5GM/DEX-IS 100 ML IV SCH ×2 (06:06→13:21)
[2022-08-27 08:00] VITALS: BP_SYST 121
[2022-08-27] MEDS: LACTULOSE 20 GM/30 ML UDC GT SCH (08:36)
[2022-08-27] MEDS: amLODIPine BESYLATE 5 MG TABLET GT SCH (08:37)
[2022-08-27] MEDS: METOPROLOL TARTRATE 25 MG TABLET GT SCH ×2 (08:37→21:27)
[2022-08-27] MEDS: ASPIRIN 81 MG TABLET(ECOTRIN) GT SCH (08:37)
[2022-08-27] MEDS: ATORVASTATIN 20 MG TABLET GT SCH (08:38)
[2022-08-27] MEDS: DIVALPROEX SODIUM 125 MG CAP.(DEPAKOTE SPRINKLE) GT SCH ×2 (08:38→21:28)
[2022-08-27] MEDS: LOSARTAN POTASSIUM 25 MG TABLET GT SCH (08:39)
[2022-08-27] MEDS: levETIRAcetam 1,000 MG in NS 100 ML IV SCH ×2 (08:39→21:24)
[2022-08-27] MEDS: MULTIVITAMINS TAB 1 TABLET GT SCH (08:39)
[2022-08-27] MEDS: ASCORBIC ACID 500 MG TABLET GT SCH (08:39)
[2022-08-27] MEDS: ENOXAPARIN SODIUM 40 MG/0.4 ML SYRINGE SUBCUT SCH (08:40)
[2022-08-27] MEDS: INSULIN NPH 100 UNITS/ML 10 ML VIAL SUBCUT SCH ×2 (08:43→21:41)
[2022-08-27] MEDS: BALSAM PERU/CASTOR OIL 56.7 GM OINT...G. TP SCH (08:44)
[2022-08-27 12:47] VITALS: BP_SYST 132
[2022-08-27 15:16] VITALS: BP_SYST 132
[2022-08-27 16:16] VITALS: BP_SYST 124
[2022-08-27 20:07] VITALS: BP_SYST 119
[2022-08-27] MEDS: OLANZapine 10 MG TABLET GT SCH (21:36)
[2022-08-28 00:45] VITALS: BP_SYST 112
[2022-08-28] MEDS: INSULIN LISPRO SLIDING SCALE 100 UNITS/ML, 3 ML VIAL (humaLOG) SUBCUT PRN ×4 (01:24→23:59)
[2022-08-28] MEDS: D5W 1,000 ML IV SCH ×2 (03:34→16:10)
[2022-08-28 08:48] VITALS: BP_SYST 123
[2022-08-28 08:57] LABS: CALCIUM 8.2 mg/dL (8.4-11.0); CREATININE 1.04 mg/dL (0.55-1.30); PHOSPHORUS 4.9 mg/dL (2.7-4.5)
[2022-08-28] MEDS: levETIRAcetam 1,000 MG in NS 100 ML IV SCH ×2 (10:26→21:30)
[2022-08-28] MEDS: ASPIRIN 81 MG TABLET(ECOTRIN) GT SCH (10:26)
[2022-08-28] MEDS: LOSARTAN POTASSIUM 25 MG TABLET GT SCH (10:27)
[2022-08-28] MEDS: METOPROLOL TARTRATE 25 MG TABLET GT SCH ×2 (10:27→20:46)
[2022-08-28] MEDS: MULTIVITAMINS TAB 1 TABLET GT SCH (10:28)
[2022-08-28] MEDS: amLODIPine BESYLATE 5 MG TABLET GT SCH (10:28)
[2022-08-28] MEDS: ATORVASTATIN 20 MG TABLET GT SCH (10:28)
[2022-08-28] MEDS: LACTULOSE 20 GM/30 ML UDC GT SCH (10:29)
[2022-08-28] MEDS: ENOXAPARIN SODIUM 40 MG/0.4 ML SYRINGE SUBCUT SCH (10:29)
[2022-08-28] MEDS: ASCORBIC ACID 500 MG TABLET GT SCH (10:29)
[2022-08-28] MEDS: INSULIN NPH 100 UNITS/ML 10 ML VIAL SUBCUT SCH ×2 (10:32→20:56)
[2022-08-28] MEDS: DIVALPROEX SODIUM 125 MG CAP.(DEPAKOTE SPRINKLE) GT SCH ×2 (10:36→20:45)
[2022-08-28] MEDS: levoFLOXacin 500 MG TABLET GT SCH (10:47)
[2022-08-28] MEDS: BALSAM PERU/CASTOR OIL 56.7 GM OINT...G. TP SCH (10:47)
[2022-08-28 11:58] VITALS: BP_SYST 109
[2022-08-28 16:18] VITALS: BP_SYST 120
[2022-08-28 20:00] VITALS: BP_SYST 116
[2022-08-28] MEDS: D5/0.45 NS 1,000 ML IV SCH (20:44)
[2022-08-28] MEDS: OLANZapine 10 MG TABLET GT SCH (20:45)
[2022-08-29 01:18] VITALS: BP_SYST 145
[2022-08-29] MEDS: INSULIN LISPRO SLIDING SCALE 100 UNITS/ML, 3 ML VIAL (humaLOG) SUBCUT PRN ×2 (05:42→13:13)
[2022-08-29] MEDS: D5/0.45 NS 1,000 ML IV SCH ×2 (05:45→15:52)
[2022-08-29 08:00] VITALS: BP_SYST 140
[2022-08-29 08:41] LABS: ALBUMIN 1.6 g/dL (3.4-4.8); CALCIUM 8.4 mg/dL (8.4-11.0); TOTAL BILIRUBIN 0.1 mg/dL (0.0-1.0)
[2022-08-29] MEDS: DIVALPROEX SODIUM 125 MG CAP.(DEPAKOTE SPRINKLE) GT SCH ×2 (09:32→22:07)
[2022-08-29] MEDS: LOSARTAN POTASSIUM 25 MG TABLET GT SCH (09:33)
[2022-08-29] MEDS: amLODIPine BESYLATE 5 MG TABLET GT SCH (09:35)
[2022-08-29] MEDS: ASPIRIN 81 MG TABLET(ECOTRIN) GT SCH (09:35)
[2022-08-29] MEDS: ATORVASTATIN 20 MG TABLET GT SCH (09:36)
[2022-08-29] MEDS: METOPROLOL TARTRATE 25 MG TABLET GT SCH ×2 (09:37→22:07)
[2022-08-29] MEDS: MULTIVITAMINS TAB 1 TABLET GT SCH (09:38)
[2022-08-29] MEDS: ASCORBIC ACID 500 MG TABLET GT SCH (09:39)
[2022-08-29] MEDS: LACTULOSE 20 GM/30 ML UDC GT SCH (09:44)
[2022-08-29] MEDS: ENOXAPARIN SODIUM 40 MG/0.4 ML SYRINGE SUBCUT SCH (09:44)
[2022-08-29] MEDS: INSULIN NPH 100 UNITS/ML 10 ML VIAL SUBCUT SCH ×2 (09:50→22:14)
[2022-08-29] MEDS: levETIRAcetam 1,000 MG in NS 100 ML IV SCH ×2 (09:55→22:08)
[2022-08-29] MEDS: BALSAM PERU/CASTOR OIL 56.7 GM OINT...G. TP SCH (09:56)
[2022-08-29] MEDS: levoFLOXacin 500 MG TABLET GT SCH (10:48)
[2022-08-29 11:02] VITALS: BP_SYST 130
[2022-08-29 17:32] VITALS: BP_SYST 134
[2022-08-29 20:40] VITALS: BP_SYST 153
[2022-08-29] MEDS: OLANZapine 10 MG TABLET GT SCH (22:08)
[2022-08-30] VITALS: BP_SYST 129
[2022-08-30] MEDS: INSULIN LISPRO SLIDING SCALE 100 UNITS/ML, 3 ML VIAL (humaLOG) SUBCUT PRN ×5 (00:55→23:54)
[2022-08-30] MEDS: D5/0.45 NS 1,000 ML IV SCH ×2 (04:25→11:00)
[2022-08-30 08:00] VITALS: BP_SYST 132
[2022-08-30 08:10] LABS: BASOPHILS # (AUTO) 0.1 K/uL (0.0-0.2); BASOPHILS % (AUTO) 0.7 % (0.0-2.0); EOSINOPHILS # (AUTO) 0.5 K/uL (0.0-0.4); EOSINOPHILS % (AUTO) 7.2 % (0.0-4.0); HEMATOCRIT 25.1 % (36-54); HEMOGLOBIN 8.5 g/dL (14.0-18.0); LYMPHOCYTES # (AUTO) 1.8 K/uL (1.0-5.5); LYMPHOCYTES % (AUTO) 25.1 % (20.5-51.5); MEAN CORPUSCULAR HEMOGLOBIN 31 pg (27-31); MEAN CORPUSCULAR HGB CONC 34 % (32-36); MEAN CORPUSCULAR VOLUME 93 fL (79.0-98.0); MONOCYTES # (AUTO) 0.7 K/uL (0.0-1.0); MONOCYTES % (AUTO) 10.3 % (1.7-9.3); NEUTROPHILS % (AUTO) 56.7 % (40.0-70.0); PLATELET COUNT (AUTO) 433 K/uL (130-430); RED BLOOD CELL COUNT(AUTO) 2.71 MIL/uL (4.2-6.2); RED CELL DISTRIBUTION WIDTH 13.8 % (9.0-15.0); WHITE BLOOD COUNT (AUTO) 7.1 K/uL (4.8-10.8)
[2022-08-30 08:12] VITALS: BP_SYST 129
[2022-08-30 08:27] LABS: CALCIUM 8.1 mg/dL (8.4-11.0); CREATININE 1.09 mg/dL (0.55-1.30)
[2022-08-30] MEDS: INSULIN NPH 100 UNITS/ML 10 ML VIAL SUBCUT SCH ×2 (09:26→21:48)
[2022-08-30] MEDS: ASPIRIN 81 MG TABLET(ECOTRIN) GT SCH (09:33)
[2022-08-30] MEDS: MULTIVITAMINS TAB 1 TABLET GT SCH (09:33)
[2022-08-30] MEDS: ATORVASTATIN 20 MG TABLET GT SCH (09:33)
[2022-08-30] MEDS: METOPROLOL TARTRATE 25 MG TABLET GT SCH ×2 (09:37→21:39)
[2022-08-30] MEDS: amLODIPine BESYLATE 5 MG TABLET GT SCH (09:38)
[2022-08-30] MEDS: ENOXAPARIN SODIUM 40 MG/0.4 ML SYRINGE SUBCUT SCH (09:39)
[2022-08-30] MEDS: BALSAM PERU/CASTOR OIL 56.7 GM OINT...G. TP SCH (09:39)
[2022-08-30] MEDS: LACTULOSE 20 GM/30 ML UDC GT SCH (09:39)
[2022-08-30] MEDS: levoFLOXacin 500 MG TABLET GT SCH (09:40)
[2022-08-30] MEDS: DIVALPROEX SODIUM 125 MG CAP.(DEPAKOTE SPRINKLE) GT SCH ×2 (09:40→21:39)
[2022-08-30] MEDS: LOSARTAN POTASSIUM 25 MG TABLET GT SCH (09:40)
[2022-08-30] MEDS: levETIRAcetam 1,000 MG in NS 100 ML IV SCH ×2 (09:41→21:40)
[2022-08-30] MEDS: ASCORBIC ACID 500 MG TABLET GT SCH (09:41)
[2022-08-30 11:38] VITALS: BP_SYST 132
[2022-08-30 17:08] VITALS: BP_SYST 112
[2022-08-30 20:05] VITALS: BP_SYST 123
[2022-08-30] MEDS ORDERED: SODIUM ZIRCONIUM CYCLOSILICATE 10 GM POWD.PACK PO ONE (20:15)
[2022-08-30] MEDS: OLANZapine 10 MG TABLET GT SCH (21:39)
[2022-08-31 01:20] VITALS: BP_SYST 115
[2022-08-31] MEDS: D5/0.45 NS 1,000 ML IV SCH ×3 (02:38→15:09)
[2022-08-31 05:30] LABS: BASOPHILS % (AUTO) 0.5 % (0.0-2.0); EOSINOPHILS # (AUTO) 0.5 K/uL (0.0-0.4); EOSINOPHILS % (AUTO) 7.6 % (0.0-4.0); HEMATOCRIT 25.1 % (36-54); HEMOGLOBIN 8.5 g/dL (14.0-18.0); LYMPHOCYTES # (AUTO) 1.9 K/uL (1.0-5.5); LYMPHOCYTES % (AUTO) 26.9 % (20.5-51.5); MEAN CORPUSCULAR HEMOGLOBIN 31 pg (27-31); MEAN CORPUSCULAR HGB CONC 34 % (32-36); MEAN CORPUSCULAR VOLUME 93 fL (79.0-98.0); MONOCYTES # (AUTO) 0.7 K/uL (0.0-1.0); MONOCYTES % (AUTO) 9.6 % (1.7-9.3); NEUTROPHILS # (AUTO) 3.9 K/uL (1.8-7.7); NEUTROPHILS % (AUTO) 55.4 % (40.0-70.0); PLATELET COUNT (AUTO) 435 K/uL (130-430); RED CELL DISTRIBUTION WIDTH 13.5 % (9.0-15.0)
[2022-08-31 05:55] LABS: CALCIUM 8.5 mg/dL (8.4-11.0); CREATININE 0.94 mg/dL (0.55-1.30)
[2022-08-31] MEDS: INSULIN LISPRO SLIDING SCALE 100 UNITS/ML, 3 ML VIAL (humaLOG) SUBCUT PRN ×3 (06:09→18:11)
[2022-08-31 08:12] VITALS: BP_SYST 119
[2022-08-31] MEDS: levETIRAcetam 1,000 MG in NS 100 ML IV SCH ×2 (09:48→20:49)
[2022-08-31] MEDS: ASPIRIN 81 MG TABLET(ECOTRIN) GT SCH (09:49)
[2022-08-31] MEDS: LACTULOSE 20 GM/30 ML UDC GT SCH (09:49)
[2022-08-31] MEDS: levoFLOXacin 500 MG TABLET GT SCH (09:49)
[2022-08-31] MEDS: MULTIVITAMINS TAB 1 TABLET GT SCH (09:50)
[2022-08-31] MEDS: ATORVASTATIN 20 MG TABLET GT SCH (09:50)
[2022-08-31] MEDS: amLODIPine BESYLATE 5 MG TABLET GT SCH (09:52)
[2022-08-31] MEDS: ENOXAPARIN SODIUM 40 MG/0.4 ML SYRINGE SUBCUT SCH (09:53)
[2022-08-31] MEDS: ASCORBIC ACID 500 MG TABLET GT SCH (09:53)
[2022-08-31] MEDS: METOPROLOL TARTRATE 25 MG TABLET GT SCH ×2 (09:54→20:46)
[2022-08-31] MEDS: BALSAM PERU/CASTOR OIL 56.7 GM OINT...G. TP SCH (09:56)
[2022-08-31] MEDS: INSULIN NPH 100 UNITS/ML 10 ML VIAL SUBCUT SCH ×2 (09:57→20:59)
[2022-08-31] MEDS: DIVALPROEX SODIUM 125 MG CAP.(DEPAKOTE SPRINKLE) GT SCH ×2 (10:14→20:41)
[2022-08-31 12:51] VITALS: BP_SYST 117
[2022-08-31 16:20] VITALS: BP_SYST 118
[2022-08-31 20:00] VITALS: BP_SYST 136
[2022-08-31] MEDS: OLANZapine 10 MG TABLET GT SCH (20:43)
[2022-09-01 00:25] VITALS: BP_SYST 119
[2022-09-01] MEDS: D5/0.45 NS 1,000 ML IV SCH ×2 (04:39→15:47)
[2022-09-01] MEDS: INSULIN LISPRO SLIDING SCALE 100 UNITS/ML, 3 ML VIAL (humaLOG) SUBCUT PRN ×3 (05:12→17:23)
[2022-09-01 08:31] VITALS: BP_SYST 122
[2022-09-01] MEDS: METOPROLOL TARTRATE 25 MG TABLET GT SCH (09:43)
[2022-09-01] MEDS: ATORVASTATIN 20 MG TABLET GT SCH (09:44)
[2022-09-01] MEDS: ASPIRIN 81 MG TABLET(ECOTRIN) GT SCH (09:44)
[2022-09-01] MEDS: ASCORBIC ACID 500 MG TABLET GT SCH (09:44)
[2022-09-01] MEDS: MULTIVITAMINS TAB 1 TABLET GT SCH (09:45)
[2022-09-01] MEDS: ENOXAPARIN SODIUM 40 MG/0.4 ML SYRINGE SUBCUT SCH (09:45)
[2022-09-01] MEDS: amLODIPine BESYLATE 5 MG TABLET GT SCH (09:45)
[2022-09-01] MEDS: levETIRAcetam 1,000 MG in NS 100 ML IV SCH (09:47)
[2022-09-01] MEDS: INSULIN NPH 100 UNITS/ML 10 ML VIAL SUBCUT SCH (09:51)
[2022-09-01] MEDS: DIVALPROEX SODIUM 125 MG CAP.(DEPAKOTE SPRINKLE) GT SCH (09:55)
[2022-09-01] MEDS: BALSAM PERU/CASTOR OIL 56.7 GM OINT...G. TP SCH (09:56)
[2022-09-01] MEDS: LACTULOSE 20 GM/30 ML UDC GT SCH (09:56)
[2022-09-01] MEDS: levoFLOXacin 500 MG TABLET GT SCH (10:54)
[2022-09-01 14:07] VITALS: BP_SYST 110
[2022-09-01] MEDS ORDERED: LEVE1000 PO (15:45)
[2022-09-01 18:07] VITALS: BP_SYST 112
[2022-09-01 18:09] VITALS: BP_SYST 131
[2022-09-01 20:00] VITALS: BP_SYST 131
== END 2022-09-01 21:08 | DRG 4 ==
LOC: SED 12:06 → SMU 16:46 → SIC 07-25 10:21 → STU 08-16 23:26
PROVIDERS: ADMIT Internal Medicine; ATTEND Internal Medicine
PROC: 5A1955Z Respiratory Ventilation, Greater than 96 Consecutive Hours (ICD-10-PCS; 2022-07-25)
PROC: 5A12012 Performance of Cardiac Output, Single, Manual (ICD-10-PCS; 2022-07-25)
PROC: 3E0A3GC Introduction of Other Therapeutic Substance into Bone Marrow, Percutaneous Approach (ICD-10-PCS; 2022-07-25)
PROC: 0BH17EZ Insertion of Endotracheal Airway into Trachea, Via Natural or Artificial Opening (ICD-10-PCS; 2022-07-25)
PROC: 4A00X4Z Measurement of Central Nervous Electrical Activity, External Approach (ICD-10-PCS; 2022-07-28)
PROC: 4A00X4Z Measurement of Central Nervous Electrical Activity, External Approach (ICD-10-PCS; 2022-08-01)
PROC: 5A1955Z Respiratory Ventilation, Greater than 96 Consecutive Hours (ICD-10-PCS; 2022-08-10)
PROC: 0BH17EZ Insertion of Endotracheal Airway into Trachea, Via Natural or Artificial Opening (ICD-10-PCS; 2022-08-10)
PROC: 0DH63UZ Insertion of Feeding Device into Stomach, Percutaneous Approach (ICD-10-PCS; 2022-08-15)
PROC: 0DB78ZX Excision of Stomach, Pylorus, Via Natural or Artificial Opening Endoscopic, Diagnostic (ICD-10-PCS; 2022-08-15)
PROC: 0B110Z4 Bypass Trachea to Cutaneous, Open Approach (ICD-10-PCS; principal; 2022-08-15 16:30)
DX: L03.116 Cellulitis of left lower limb (principal); A41.9 Sepsis, unspecified organism; J96.01 Acute respiratory failure with hypoxia; I46.9 Cardiac arrest, cause unspecified; J18.9 Pneumonia, unspecified organism; M86.8X7 Other osteomyelitis, ankle and foot; N17.9 Acute kidney failure, unspecified; E66.2 Morbid (severe) obesity with alveolar hypoventilation; Z68.41 Body mass index [BMI] 40.0-44.9, adult; Z99.11 Dependence on respirator [ventilator] status; G93.1 Anoxic brain damage, not elsewhere classified; E87.0 Hyperosmolality and hypernatremia; I13.0 Hypertensive heart and chronic kidney disease with heart failure and stage 1 through stage 4 chronic kidney disease, or unspecified chronic kidney disease; E44.1 Mild protein-calorie malnutrition; E78.5 Hyperlipidemia, unspecified; E11.621 Type 2 diabetes mellitus with foot ulcer; S91.302A Unspecified open wound, left foot, initial encounter; E86.0 Dehydration; F39 Unspecified mood [affective] disorder; X58.XXXA Exposure to other specified factors, initial encounter; E11.69 Type 2 diabetes mellitus with other specified complication; D64.9 Anemia, unspecified; E87.5 Hyperkalemia; J38.4 Edema of larynx; Z20.822 Contact with and (suspected) exposure to COVID-19; L97.529 Non-pressure chronic ulcer of other part of left foot with unspecified severity; R13.10 Dysphagia, unspecified; K44.9 Diaphragmatic hernia without obstruction or gangrene; K29.70 Gastritis, unspecified, without bleeding; I50.9 Heart failure, unspecified; N18.30 Chronic kidney disease, stage 3 unspecified; E11.22 Type 2 diabetes mellitus with diabetic chronic kidney disease; Z79.4 Long term (current) use of insulin; Y93.89 Activity, other specified; Y99.8 Other external cause status; Y92.89 Other specified places as the place of occurrence of the external cause
CPT/HCPCS: 36415; 36600; 70450-TC; 71045; 72040-TC; 76376; 76770; 78315; 80048; 80053; 80202; 81000; 82009; 82043; 82570; 82800-TC; 82803-TC; 82962; 83605; 83735; 84100; 84302; 84484; 85007; 85025; 85027; 85379; 85610-TC; 85651-TC; 85730-TC; 86140; 87040; 87070-TC; 87081; 87205-TC; 88305; 88312; 88313; 92950; 93005; 93306; 93970; 93971; 94002; 94003; 94760; 95816; 96361; 96365; 96366; 96368; 96375; 99285; A6209; A9503; G0378; J0690; J0692; J1630; J1650; J1815; J1953; J2060; J2270; J2543; J2704; J3370; J3490; J7030; J7040; J7042; J7050; J7060; J7120